=== PATIENT | male | born 1955 | race Caucasian/White ===

== ENCOUNTER 2023-05-20 06:06 | Inpatient (IN) | payer OTHER, SELFPAY ==
[2023-05-19 23:39] VITALS: BP 169/86
[2023-05-19 23:44] VITALS: BP 169/86
[2023-05-20] VITALS (27 sets, daily range): BP systolic 84–143; BP diastolic 45–68; BMI 47.2; BMI 46.5
[2023-05-20 00:06] LABS: % Basophils 0.3 % (0-2); % Eosinophils 0.1 % (0-6); % Immature Granulocytes 0.8 % (0-0.5); % Lymphocytes 2.8 % (20.5-51.1); % Monocytes 3.1 % (1.7-9.3); % Neutrophils 92.9 % (42.2-75.2); Absolute Basophils 0.1 10^3/uL (0-0.2); Absolute Immature Granulocytes 0.2 10^3/uL (0-0.05); Absolute Lymphocytes 0.5 10^3/uL (1.2-3.4); Absolute Monocytes 0.6 10^3/uL (0.1-0.6); Absolute Neutrophils 16.9 10^3/uL (1.4-6.5); Hematocrit 33.5 % (39.0-52.0); Hemoglobin 11.3 g/dL (13.0-18.0); Mean Corp Hgb Conc. 33.7 g/dL (33.0-37.0); Mean Corpuscular Hgb 28.3 pg (27.0-31.0); Mean Platelet Volume 9.9 fL (7.4-10.4); Nucleated Red Blood Cells % 0 % (-); Platelet Count 190 10^3/uL (130-400); Red Blood Cell Count 3.99 10^6/uL (4.70-6.10); Red Cell Dist. Width 16.9 % (11.5-14.5); White Blood Cell Count 18.2 10^3/uL (4.8-10.8)
[2023-05-20 00:19] LABS: Lactic Acid 1.5 mmol/L (0.7-2.0)
[2023-05-20 00:21] LABS: ALT (SGPT) 25 U/L (0-50); AST (SGOT) 39 U/L (17-59); Albumin 3.1 g/dl (3.5-5.0); Alkaline Phosphatase 136 U/L (38-126); Blood Urea Nitrogen 39 mg/dl (9-20); Calcium 8.4 mg/dl (8.4-10.2); Carbon Dioxide 15 mmol/L (22-30); Chloride 104 mmol/L (98-107); Estimated Creatinine Clearance 44 ml/min; Glucose 197 mg/dl (70-99); Sodium 132 mmol/L (135-145); Total Bilirubin 1.7 mg/dl (0.2-1.3); Total Protein 6.4 g/dl (6.3-8.2); eGFR 28.49
[2023-05-20] MEDS: TYLENOL 1000 MG PO ×2 (01:50→20:35)
[2023-05-20 01:53] LABS: Urine Albumin 1+ (Neg - Trace); Urine Bilirubin Negative (Negative); Urine Character Slightly Cloudy (Clear); Urine Color Yellow; Urine Glucose Negative (Negative); Urine Ketone 1+ (Negative); Urine Leukocyte 2+ (Negative); Urine Nitrite Negative (Negative); Urine Occult Blood 2+ (Negative); Urine Urobilinogen Negative (Neg - 1+)
[2023-05-20 02:05] LABS: Urine Granular Cast 0-2 /LPF (0); Urine Squamous Cell 0-2 /LPF (Few)
[2023-05-20 02:06] LABS: Urine Amorphous Seen; Urine Bacteria Moderate (Negative); Urine White Cell 16-20 /HPF (0-5)
[2023-05-20] MEDS: ZOSYN 50 IV (02:58)
[2023-05-20] MEDS: NSS 500 IV (03:08)
--- NOTE | 2023-05-20 03:16 | ED.GENMED ---
History of Present Illness
General
Chief Complaint: Weakness
Source: patient and spouse
Exam Limitations: none
Time Seen by Provider: 05/20/23 02:41
Nursing documentation reviewed up to this point in time: agreed with
Travel History
Have you had any contact with someone who has COVID-19?: No
Do you have any symptoms of coronavirus? Fever > 100 degrees, chills, cough, shortness of breath, sore throat, loss of taste or smell, muscle aches, or headache?: Yes
Symptoms:: fever
History of Present Illness
History of Present Illness:
67-year-old male with a past medical history of bronchiectasis, hypertension, hyperlipidemia, diabetes, rheumatoid arthritis who presents to the emergency department for evaluation of fever and weakness over the past few days. reports for the
past 3 to 4 days he has been increasingly weak and she has noticed he is slightly confused (although patient vehemently denies this). He has had a fever today which finally prompted presentation to the emergency room. He has noticed some increased
frequency of urination and some mild dysuria over the past 3 days. He says that he did have some left-sided flank pain a couple days ago but this subsided and he no longer has any flank pain today. Denies any abdominal pain. He has not had any
nausea or vomiting and denies diarrhea�in fact he has been mildly constipated. He denies any cough or shortness of breath. Denies any chest pain. He denies any other complaints. Of note he is on Orencia (DMARD).
Past History
Past History
ED Past Medical History: CAD, CVA, Hypercholesterolemia, Other and Other
ED Past Surgical History: Orthopedic
Social History
Tobacco: Non-smoker
Alcohol: None
Personal:
Living: with family
Family History
Family History: Other
Review of Systems
Review of Systems
All Other Systems: ROS reviewed and negative except as documented in HPI and ROS
Constitutional: Reports fever, fatigue and chills
EENT: Denies sore throat
Respiratory: Denies cough or trouble breathing
Cardiac: Denies chest pain or palpitations
ABD/GI: Reports constipated; Denies abdominal pain, nausea, vomiting or diarrhea
: Reports dysuria, frequency and flank pain
Musculoskeletal: Denies neck pain or back pain
Neurological: Reports other (Questionable mild confusion); Denies headache, weakness or numbness
Phy Exam
Physical Exam
Physical Exam:
General: Awake, alert, oriented x3; somewhat flushed but no acute distress
Head: Normocephalic, atraumatic
Eyes: Conjunctiva normal, sclera anicteric
Throat: Airway intact, handling secretions
Neck: Trachea midline, supple without meningismus
Lungs: Some faint rales at the lung bases; acceptable pulse ox on room air; mild tachypnea but not in respiratory distress
Heart: Tachycardia with regular rhythm, no murmurs, gallops, or rubs
Abd: Soft, non distended, nontender to deep palpation
Back: No CVA tenderness
Neuro: No gross deficits
Skin: no rash
Extremities: Warm and well-perfused
Scores
Heart Failure Risk
Heart Failure Risk Score: Not Applicable
Heart Score for Chest Pain Patients
STEMI patient?: Not applicable
Withdrawal Assessment of Alcohol
Withdrawal Assessment Completed?: Not applicable
Course
Orders/Labs/Results
Orders:
Orders
05/19/23 23:47
Electrocardiogram (*1) Urgent
Reason for Study: Other
Other Reason for Exam: Possible Sepsis
Cardiac Monitoring- Treatment ONCE
EKG- Treatment ONCE
IV Insert/Care/Rem.- Treatment PRN
Straight cath- Treatment ONCE
Urinalysis Reflex To Culture Urgent
Date Specimen was Collected: 05/19/23
Time Specimen was Collected: 23:47
O2 Therapy [RESP] Urgent
Titrate/Wean O2 to maintain O2 sat greater than (%): 93
Special Instructions: TO MAINTAIN CONTINUOUS O2 SATS > OR = 93%
Pulse Ox/cont/shift [RESP] Urgent
Quantity: 1
Special Instructions: CONTINUOUS
05/19/23 23:57
Complete Blood Count/With Diff Urgent
Comprehensive Metabolic Panel Urgent
Lactic Acid Q4H
Comment: ON ICE, CANCEL 2ND ORDER IF FIRST LACTIC ACID LEVEL <2
Blood Culture Q30M
CINDY Source: Blood/Venous
Specimen Description:
Date Specimen was Collected: 05/19/23
Time Specimen was Collected: 23:47
Comment: FROM 2 SEPARATE SITES
05/20/23 01:47
Urine Microscopic Reflex Cult Urgent
Blood Culture Q30M
CINDY Source: Blood/Venous
Specimen Description:
Comment: FROM 2 SEPARATE SITES
Urine Culture Urgent
CINDY Source: U
Specimen Description:
Date Specimen was Collected: 05/19/23
Time Specimen was Collected: 23:47
05/20/23 01:48
Acetaminophen [Tylenol] 1,000 mg .ROUTE .STK-MED ONE
05/20/23 01:49
Acetaminophen [Tylenol] 1,000 mg PO NOW STA
05/20/23 02:44
0.9% Sodium Chloride 500 ml [Nss] 500 ml IV BOLUS
Piperacillin/Tazo 3.375 Gram [Zosyn] 3.375 gram in 50 ml IV NOW
CR Chest Portable - 1 View Urgent
Comment:
Reason For Exam: fever
Reason Study Needs to be Portable: Unable to Transport
05/20/23 03:02
CT Abd/pel Without Iv Or Oral Urgent
Comment:
Reason For Exam: left flank pain
Abnormal Lab Results
05/19/23 05/20/23
23:57 01:47
WBC 18.2 H 10^3/uL
(4.8-10.8)
RBC 3.99 L 10^6/uL
(4.70-6.10)
Hgb 11.3 L g/dL
(13.0-18.0)
Hct 33.5 L %
(39.0-52.0)
RDW 16.9 H %
(11.5-14.5)
Abs Immat Gran (auto) 0.2 H 10^3/uL
(0-0.05)
Absolute Neuts (auto) 16.9 H 10^3/uL
(1.4-6.5)
Absolute Lymphs (auto) 0.5 L 10^3/uL
(1.2-3.4)
Immature Gran % 0.8 H %
(0-0.5)
Neutrophils % 92.9 H %
(42.2-75.2)
Lymphocytes % 2.8 L %
(20.5-51.1)
Sodium 132 L mmol/L
(135-145)
Carbon Dioxide 15 L mmol/L
(22-30)
BUN 39 H mg/dl
(9-20)
Creatinine 2.4 H mg/dL
(0.7-1.3)
Glucose 197 H mg/dl
(70-99)
Total Bilirubin 1.7 H mg/dl
(0.2-1.3)
Alkaline Phosphatase 136 H U/L
(38-126)
Albumin 3.1 L g/dl
(3.5-5.0)
Urine Ketones 1+ A
(Negative)
Ur Occult Blood Reflex 2+ A
(Negative)
Leukocyte Esterase Rfl 2+ A
(Negative)
Urine RBC 7-10 A /HPF
(0-2)
Urine WBC (Reflex) 16-20 A /HPF
(0-5)
Urine Bacteria (Reflex) Moderate A
(Negative)
Urine Albumin (Reflex) 1+ A
(Neg - Trace)
05/19/23 23:57
05/19/23 23:57
Vital Signs
Initial and Last Documented VS:
Initial Vital Signs
BP
169/86
05/19/23 23:39
Last Documented Vital Signs
Temp Pulse Resp BP Pulse Ox
38.2 C H 83 24 106/45 92
05/20/23 02:22 05/20/23 04:30 05/20/23 04:30 05/20/23 04:00 05/20/23 03:15
MDM/Problems Addressed
Differential Diagnosis Includes:
UTI/pyelonephritis, pneumonia, viral syndrome, intra-abdominal infection somewhat less likely with no tenderness
MDM/Problems Addressed:
67-year-old male presents for evaluation of fever and lethargy over the past few days associated with urinary symptoms. He did have some flank pain a few days ago this resolved. No abdominal pain. He arrives tachycardic, tachypneic, febrile,
hypertensive; pulse ox acceptable on room air. Exam as above. Plan to place an IV send labs including a CBC and a CMP, lactate, blood cultures, urinalysis. Swab for COVID and flu. Check a chest x-ray to rule out pneumonia. Given his report of
flank pain a few days ago and concern for sepsis will send for CT of the abdomen pelvis as well to rule out kidney stone. Check an EKG given his tachycardia. Will treat with fluids, antipyretics. Monitor closely reassess after the above.
Labs reviewed: CBC shows leukocytosis 18.2, marginal anemia. CMP shows a creatinine of 2.4 up from baseline of 1.4 last year. His lactate is less than 2. Urinalysis positive for infection with moderate bacteria and pyuria. Chest x-ray reviewed
by me shows no acute change from prior. Awaiting results of CT to rule out kidney stone but suspect likely sepsis secondary to UTI. Will cover with IV Zosyn. IV fluids in progress. Anticipate admission pending CT.
CT reviewed: Two 5 mm obstructive stone to the left UVJ with moderate hydronephrosis. Concern for sepsis from urinary tract infection with nephrolithiasis--Case discussed with nephrology for consultation and suspect will need ureteral stent.
Already covered with antibiotics, given IV fluids. Case discussed with hospitalist for admission.
Chronic conditions affecting care:
History of rheumatoid arthritis on DMARDs�immunosuppression high risk for sepsis/infection
Acute Exacerbation and/or Progression of Chronic Illness:
Acutely hypertensive�improved without intervention continue to monitor no additional antihypertensive indicated at present
Acute Exacerbation and/or Progression of Chronic Illness: HTN
*Radiology
Radiology exam reviewed: preliminary read by ED provider and radiology read reviewed
*Pulse Oximetry
Patient hypoxic: no
*EKG
Interpreted by ED Provider?: Yes
Heart Rate: 106
Rate: tachycardiac
Rhythm: sinus and sinus tachycardia
Squire: normal axis
Interval: normal interval
QRS Pattern: right bundle branch block
Ischemia: non-specific ST changes
*Critical Care Note
Total Time (30-74mins, 75-104mins- exclusive of procedures): 30
comment:
Critical care statement: A total of 30 minutes of critical care time was provided for this patient. This includes management of unstable vital signs, evaluation of the patient at bedside, frequent reassessment, discussion with
consultants/hospitalist, and review of pertinent medical records. This time was separate from time utilized to perform any aforementioned documented procedures
Data Reviewed
Review of Other/Old Records Reveals: Labs and Records
Source: patient, records and spouse
Patient Management
Discussion with other providers: Hospitalist (Discussed with hospitalist)
Escalation/DeEscalation of care consider admission/obs:
Admission indicated
ED Attending Note
-
Portions of this chart may have been created with voice recognition software.� Occasional wrong word or��sound alike� substitutions may have occurred due to the inherent limitations of voice recognition software.
Discharge Plan
Departure
Patient Disposition: Admit
Date of Disposition: 05/20/23
Time of Disposition: 05:06
Admit to doctor: Eliazar
Presentation/result/management discussed w/ accepting MD/: Hospitalist
Discharge Problem:
Sepsis, AJ (acute kidney injury), Acute UTI, Left nephrolithiasis
Prescriptions:
No Action
paroxetine HCl 20 MG tablet
20 mg PO BID
multivitamin [Multi-Day] 1 EACH tablet
1 ea PO DAILY
propranolol 10 MG tablet
20 mg PO BID
losartan 50 MG tablet
50 mg PO BID
Hold Instructions: resume in 2 days
furosemide [Lasix] 20 MG tablet
40 mg PO DAILY
Hold Instructions: resume in 2 days
tramadol 50 MG tablet
50 mg PO PRN PRN (Reason: pain)
atorvastatin 80 mg Tablet
80 mg PO DAILY
ascorbic acid (vitamin C) [Vitamin C] 1,000 mg Tablet
1,000 mg PO DAILY
clopidogrel [Plavix] 75 mg Tablet
75 mg PO DAILY
nifedipine 60 mg Tablet Extended Release
60 mg PO DAILY
cholecalciferol (vitamin D3) [Vitamin D3] 125 mcg (5,000 unit) Tablet
125 mcg PO DAILY
Orencia 125 mg/mL Syringe
125 mg SC QWEEK
ciprofloxacin HCl 0.3 % Drops
1 drp ophthalmic (eye) Q4H Qty: 10 0RF
Rx Instructions:
take for 3 more days
Mounjaro 7.5 mg/0.5 mL Pen Injector
7.5 mg SC QWEEK
insulin aspart U-100 [Novolog FlexPen U-100 Insulin] 100 unit/mL (3 mL) insulin pen
35 unit SC TID
Rx Instructions:
new dose
insulin degludec [Tresiba FlexTouch U-100]
140 unit SC DAILY
Rx Instructions:
new dose
Referrals:
Menichello,Anabel, DO [Family Provider] -
Interventions
Interventions:
*Risk Screen - Suicide Last Done: 05/20/23 00:02
*General Assessment Last Done: 05/20/23 00:02
*Neglect/Abuse Screening Last Done: 05/20/23 00:02
ED- Fall Risk Assessment Last Done: 05/20/23 03:23
*ED COVID-19 Vaccine History Last Done: 05/20/23 00:02
ED- Cardiac Assessment Last Done: 05/20/23 00:02
ED- Neurological Assessment Last Done: 05/20/23 00:02
ED- Pulmonary Assessment Last Done: 05/20/23 00:02
Discharge Date and Time
Print Language: MALAY
[2023-05-20] MEDS: NSS 1000 IV (05:21)
--- NOTE | 2023-05-20 05:34 | HPS.HSE ---
Addendum entered and electronically signed by Reji Perea MD 05/20/23 05:48:
ID consult placed
Original Note:
Family Physician
-
Family Physician: Anabel Bonilla
Chief Complaint
-
weak and confused per
History of Present Illness
67M with PMH significant for ASCVD, HTN, DM-II and morbid obesity, bronchiectasis, hypertension, hyperlipidemia, diabetes, rheumatoid arthritis seen at ER for evalautio of fever and weakness over the past few 3 to 4 days
Per he is progressive wqeakness , mildly confused
Reports increased frequency of urination and some mild dysuria over the past 3 days.
+ left-sided flank pain a couple days ago but this subside
ROS
Denies any abdominal pain.
No nausea or vomiting and denies diarrhea�i
Medical History
Past Medical History
Past Medical History: Reports Other
Additional Past Medical History:
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
Polyclonal Gammopathy
Morbid Obesity
DM-II
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
Nephrolithiasis
Prostatitis
NEIL
Interstitial Lung Disease
Cirrhosis / GARG
Rheumatoid Arthritis
History of PE
Past Surgical History: Reports Other
Additional Past Surgical History:
Right Rotator Cuff repair
Bilateral TKA
PTCA with Stent x 2
Cataracts
Social History
Tobacco: Non-smoker
Alcohol: Occasional
Personal:
Living: With Family
Family History
Family History: Other (Father: COPD Mother: Cerebral Aneurysm Sister: CHF)
Allergies / Home Medications
Allergies reflects when Allergies were last updated in [facility].
Home Medications with original date entered in [facility]
Allergy/Medication List:
Allergies
Allergy/AdvReac Type Severity Reaction Status Date / Time
No Known Allergies Allergy Verified 06/11/22 02:15
Home Medications
paroxetine HCl 20 mg tablet 20 mg PO BID anxiety 02/03/12
multivitamin (Multi-Day tablet) 1 ea PO DAILY 03/05/16
propranolol 10 mg tablet 20 mg PO BID 03/05/16
furosemide 20 mg tablet (Lasix) 40 mg PO DAILY 01/04/18
losartan 50 mg tablet 50 mg PO BID 01/04/18
tramadol 50 mg tablet 50 mg PO PRN PRN pain 01/04/18
abatacept 125 mg/mL subcutaneous syringe (Orencia) 125 mg SC QWEEK 06/11/22
ascorbic acid (vitamin C) 1,000 mg tablet (Vitamin C) 1,000 mg PO DAILY 06/11/22
atorvastatin 80 mg tablet 80 mg PO DAILY 06/11/22
cholecalciferol (vitamin D3) 125 mcg (5,000 unit) tablet (Vitamin D3) 125 mcg PO DAILY 06/11/22
clopidogrel 75 mg tablet (Plavix) 75 mg PO DAILY 06/11/22
nifedipine 60 mg tablet,extended release 60 mg PO DAILY 06/11/22
ciprofloxacin HCl 0.3 % eye drops 1 drp ophthalmic (eye) Q4H #10 mL 06/13/22
insulin aspart U-100 100 unit/mL (3 mL) subcutaneous pen (Novolog FlexPen U-100 Insulin aspart) 35 unit SC TID 05/20/23
insulin degludec [Tresiba FlexTouch U-100] 140 unit SC DAILY 05/20/23
tirzepatide 7.5 mg/0.5 mL subcutaneous pen injector (Mounjaro) 7.5 mg SC QWEEK 05/20/23
Review of Systems
-
Constitutional: Reports Fever
EENT: Reports No Symptoms
Respiratory: Reports No Symptoms
Cardiac: Reports No Symptoms
Abdomen/GI: Reports No Symptoms
: Reports See HPI
Musculoskeletal: Reports No Symptoms
Skin: Reports No Symptoms
Neurological: Reports No Symptoms
Endocrine: Reports No Symptoms
Hematologic/Lymphatic: Reports No Symptoms
Psych: Reports No Symptoms
Physical Exam
Vital Signs
Vital Signs
Temp Pulse Resp BP Pulse Ox
100.8 F H 83 24 106/45 92
05/20/23 02:22 05/20/23 04:30 05/20/23 04:30 05/20/23 04:00 05/20/23 03:15
Physical Exam
General: No Apparent Distress and Other
HEENT: NormoCephalic and Anicteric
Respiratory: Crackles
Cardiac: Regular Rhythm and Tachycardia
Breast: Deferred by me
GI: Soft, Non Tender, Non Distended and Normal Bowel Sounds
Genito-urinary: No costovertebral tender
Skin: Warm
Neuro: Awake, Alert and Nonfocal/grossly intact
Psych: Calm
Laboratory Results
-
05/19/23 23:57
05/19/23 23:57
Laboratory Results
Lactic Acid Cancelled 05/20/23 03:47
Total Bilirubin 1.7 mg/dl (0.2-1.3) H 05/19/23 23:57
AST 39 U/L (17-59) 05/19/23 23:57
ALT 25 U/L (0-50) 05/19/23 23:57
Alkaline Phosphatase 136 U/L (38-126) H 05/19/23 23:57
Data Reviewed
-
CT Scan: Report Reviewed by me
Lab Data: Labs Reviewed by me
Old Records: Reviewed
Impression/Plan
-
Reviewed VS: T 101.3 HR 84 BP 105/45 RR 24
Data
WCC 18
Hgb 11.3
Plt 190
Na 132
CO2 15
BUN 39
Cr 2.4 - base line mid 1s
eGFR 28
TB 1.7
UA suggestive of UTI
CT AP:
two 5mm stones at left UVJ with moderate hydro.
No BW obstruction
Last hospitalist admission: 06/14/22 - 06/13/22
DX: S sixto sepsis which was present on admission with acute toxic metabolic encephalopathy due to right pyelonephritis, acute kidney injury, acute hypoxemic respiratory insufficiency with a history of interstitial lung disease, acute conjunctivitis
ASSESSMENT & PLAN
Sepsis due to complicated UTI 2/2 infected two 5mm stones at left UVJ with moderate hydro/ PN
Associated TME
Associated AJ on CKD
Metabolic acidosis
- UCx, BCx
- NPO and LR IVF
- IV HCO3
- Empiric Cefepime
- Held Plavix
- Uro consulted
AJ due to obstructive nephropathy and sepsis
Metabolic acidosis
- IV HCO3
- LR IVF
- Hold diuretics acutely.
- Hold ARB for now.
- Follow RFTs
HX ILD - New dx of ILD based on CT scan done 06/08.
HX PE, is morbidly obese and has been in bed / sedentary for the past 3 days due to acute illness.
ASCVD (CAD, CVA)
- Stable. No chest pain or new focal neurologic complaints.
- held DAPT, statin, etc.
DMT2
- Stable.
- Continue basal lantus 50 %
- add ISS low
Primary Hypertension
- Holding ARB acutely as noted above.
- held nifedipine and propranolol.
Rheumatoid Arthritis
- Stable. No complaints of active joint pains at present.
- Hold Orencia given active infection.
NEIL
- Stable. Continue CPAP during inpatient stay.
Morbid Obesity
DVT Prophylaxis: SCD
Code Status: Full
ICU
Total Critical Care Time__45___ minutes. I was immediately available to the patient and staff. I personally examined, reviewed labs, diagnostic images/reports, interpretations, treatment plans, discussed patient care with other providers and
family or caregivers (if patient is unable to make decisions), entered orders as appropriate and documented the medical record.
--- NOTE | 2023-05-20 05:58 | W.SUR.PREOP ---
Pre-Operative Surgical Note
-
I have examined this patient prior to the performance of the scheduled procedure.
The patient's condition is unchanged from the time of the current History and
Physical and the patient is able to undergo the scheduled procedure.
67M presents to ER w/ progressive weakness, mild confusion, urinary frequency, dysuria over last 3 days.
Febrile to >102F in ER.
+ left flank pain a couple days ago - has subsided.
WBC 18.2
Cr 2.4
UA +bacteria/WBCs
CT imaging - large obstructing proximal right ureteral stone, obstructing distal left UVJ stones x2 (5 mm)
A/P:
Urosepsis
AJ
Obstructing distal left ureteral stones
Obstructing proximal right ureteral stone
- IVF + IV abx
- NPO
- To OR emergently for cysto + bilateral stent placement
D/w Dr. Vega.
--- NOTE | 2023-05-20 06:15 | W.IMMPOSTOP ---
Surgical Immed Post Op Note
-
Primary Surgeon: Tarun
Pre-op Diagnosis:
Urosepsis
AJ
Proximal right ureteral stone
Obstructing distal left ureteral stones (x2) w/ hydronephrosis
Post-op Diagnosis: Same
Procedure Performed:
1. Cystoscopy and left UO stone manipulation
2. Bilateral ureteral stent placement (6Fr x 26 cm JJ)
Anesthesia Type: GETA
Specimen / Cultures: None/None
Estimated Blood Loss: Negligible
Drains:
1. Bilateral 6Fr x 26 cm JJ ureteral stents
2. 16Fr Coude catheter (10 cc in balloon)
Complications: None
Operative Findings:
narrow urethral lumen w/o stricture
debris-filled bladder c/w cystitis
frankly purulent urine output from left UO after left stent deployment
5 mm stone at left UO manipulated retrograde to accommodate guidewire.
[2023-05-20 07:07] LABS: Glucose - Point of Care 131 mg/dl (70-99)
[2023-05-20] MEDS: LR 1000 IV ×2 (07:38→16:27)
[2023-05-20] MEDS: STERILE WATER FOR INJECTION 10 ML IV ×2 (07:56→20:33)
[2023-05-20] MEDS: MAXIPIME 1000 MG IV ×2 (07:57→20:33)
--- NOTE | 2023-05-20 08:03 | W.PN.UPDATE ---
Update Note
Progress Note Update
67-year-old male admitted early this morning for sepsis secondary to infected left ureteral stone.
Status post cystoscopy with purulent urine, 2 left ureteral stents placed by urology on 05/20/2023.
Patient is afebrile, blood pressure 109/58, pulse 72.
Continue IV fluids, continue IV antibiotics, stable for transfer to telemetry.
Discussed with nursing staff and neurology.
[2023-05-20] MEDS: SODIUM BICARBONATE 1150 MEQ IV (08:04)
--- NOTE | 2023-05-20 08:51 | CON.INTV ---
Consultation
Consultation Request
Date/Time Consultation Requested: 05/20/2023549
Date/Time Consultation Performed: 05/20/2023834
Requesting Provider: Dr. Perea
Performing Provider: Dr. Hutchins
Reason for Consultation: Sepsis
Medical History
-
Chief Complaint: Weakness/AMS
History of Present Illness:
67-year-old male with past medical history of DM type II, polyclonal colopathy, NEIL, history of ILD, GARG cirrhosis and history of PE who was BIBEMS due to fever with generalized weakness, confusion and frequent urination. In the ER, he was febrile
to 101.6 �F, tachycardic to 106 bpm, tachypneic to 29 breaths/min, hypertensive to 169/86 and saturating 94% on room air. Labs showed leukocytosis to 18.2, Hb 11.3, hyponatremia 132, elevated creatinine to 2.4 and elevated T. bili. Blood cultures
were collected and urine culture was also sent. CT A/P was obtained showing left-sided obstructive uropathy with two 5 mm calculi at the left ureterovesical junction. Also numerous additional nonobstructing left intrarenal calculi, and a
nonobstructing 9 mm right renal pelvic calculus. Urology consulted and patient went to the OR for cystoscopy with bilateral stent placement. Due to his tachycardia and risk for transient bacteremia with worsening sepsis, he was transferred to the
ICU postoperatively for further care. Siene Maker service is consulted for additional management/recommendations.
When I saw the patient this morning he was in bed, in no acute distress with BP 114/55. Respiratory rate 17 and he was saturating 96% on room air. Heart rate 69. He says he feels much better currently. Denies headache, chest pain, shortness of
breath, fevers or chills.
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
PSHx: Right rotator cuff repair, bilateral TKA, coronary stents X2, cataract surgery
Past Medical History
Past Medical History: Other (Above as per HPI)
Past Surgical History: Other (Above as per HPI)
Social History
Tobacco: Non-smoker
Alcohol: Occasional
Drug: None
Personal:
Living: With Family
Family History
Family History: Other (Father: COPD; mother: Cerebral aneurysm; sister: CHF)
Allergies / Home Medications
Allergies
Allergy/AdvReac Type Severity Reaction Status Date / Time
No Known Allergies Allergy Verified 06/11/22 02:15
Home Medications
�Medication �Instructions �Recorded �Confirmed �Last Taken �Type
paroxetine HCl 20 mg tablet 20 mg PO BID anxiety 02/03/12 05/20/23 08/08/16 History
multivitamin (Multi-Day tablet) 1 ea PO DAILY 03/05/16 05/20/23 08/09/16 History
propranolol 10 mg tablet 20 mg PO BID 03/05/16 05/20/23 08/09/16 History
furosemide 20 mg tablet (Lasix) 40 mg PO DAILY 01/04/18 05/20/23 Unknown History
losartan 50 mg tablet 50 mg PO BID 01/04/18 05/20/23 Unknown History
tramadol 50 mg tablet 50 mg PO PRN PRN pain 01/04/18 05/20/23 Unknown History
abatacept 125 mg/mL subcutaneous 125 mg SC QWEEK 06/11/22 05/20/23 Unknown History
syringe (Orencia)
ascorbic acid (vitamin C) 1,000 mg 1,000 mg PO DAILY 06/11/22 05/20/23 Unknown History
tablet (Vitamin C)
atorvastatin 80 mg tablet 80 mg PO DAILY 06/11/22 05/20/23 Unknown History
cholecalciferol (vitamin D3) 125 125 mcg PO DAILY 06/11/22 05/20/23 Unknown History
mcg (5,000 unit) tablet (Vitamin
D3)
clopidogrel 75 mg tablet (Plavix) 75 mg PO DAILY 06/11/22 05/20/23 Unknown History
nifedipine 60 mg tablet,extended 60 mg PO DAILY 06/11/22 05/20/23 Unknown History
release
ciprofloxacin HCl 0.3 % eye drops 1 drp ophthalmic (eye) Q4H #10 mL 06/13/22 Unknown Rx
insulin aspart U-100 100 unit/mL 35 unit SC TID 05/20/23 05/20/23 Unknown History
(3 mL) subcutaneous pen (Novolog
FlexPen U-100 Insulin aspart)
insulin degludec [Tresiba 140 unit SC DAILY 05/20/23 05/20/23 Unknown History
FlexTouch U-100]
tirzepatide 7.5 mg/0.5 mL 7.5 mg SC QWEEK 05/20/23 05/20/23 Unknown History
subcutaneous pen injector
(Phillip)
Review of Systems
-
History Source: Patient
All other systems: Negative unless noted
Vitals / Labs / Diagnostic Testing
Vital Signs
Temp Pulse Resp BP Pulse Ox
97.6 F 69 17 126/64 95
05/20/23 08:34 05/20/23 09:00 05/20/23 09:00 05/20/23 08:45 05/20/23 09:00
Lab Data
05/19/23 23:57
05/19/23 23:57
Laboratory Results
05/20/23
08:09
PT Cancelled
INR Cancelled
APTT Cancelled
Diagnostic Testing:
Physical Exam
-
HEENT: Normocephalic and Anicteric
Cardiovascular: S1/S2 and Peripheral Edema (n)
Respiratory: Clear, Wheeze (n), Rales (n), Rhonchi (n) and Non-Labored Respirations
GI: Soft, Non Distended and Non Tender
Neurology: Awake, Alert and Tremors (n)
Skin: Warm and Dry
General: Comfortable and Chills (n)
Assessment
-
Assessment: 67-year-old male with past medical history of DM type II, polyclonal colopathy, NEIL, history of ILD, GARG cirrhosis and history of PE who was BIBEMS due to fever with generalized weakness, confusion and frequent urination. In the ER,
he was febrile to 101.6 �F, tachycardic to 106 bpm, tachypneic to 29 breaths/min, hypertensive to 169/86 and saturating 94% on room air. Labs showed leukocytosis to 18.2, Hb 11.3, hyponatremia 132, elevated creatinine to 2.4 and elevated T. bili.
Blood cultures were collected and urine culture was also sent. CT A/P was obtained showing left-sided obstructive uropathy with two 5 mm calculi at the left ureterovesical junction. Also numerous additional nonobstructing left intrarenal calculi,
and a nonobstructing 9 mm right renal pelvic calculus. Urology consulted and patient went to the OR for cystoscopy with bilateral stent placement. Due to his tachycardia and risk for transient bacteremia with worsening sepsis, he was transferred
to the ICU postoperatively for further care. Siene Maker service is consulted for additional management/recommendations.
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
Impression:
#Renal stone related sepsis without shock
#Complicated UTI with left-sided obstructive uropathy
#Febrile illness - due to sepsis
#Tachycardia - due to sepsis and tachycardia now resolved
#Acute kidney injury (baseline creatinine appears to be between 1.4�1.7)
#Hyperglycemia - improved
#Hyperbilirubinemia - likely due to sepsis
Plan:
- Continue with ABx (cefepime); ID on board
- Trend Cr and UOP; renally dose all meds and ABx
- Follow up urine and blood Cx
- Trend LFTs
- Would stop IVF after first 24 hrs as pt tolerating PO diet
- Maintain MAP>65
- Goal BG 140-180mg/dL
- Replete electrolytes with K>4, Mg>2
- stress ulcer ppx: n/a
- DVT ppx: LMWH --> if Cr continues to worsen then change to HSQ
Dispo: Patient stable for transfer out of ICU to telemetry. Siene Maker/pulmonary service will sign off. Thank you for allowing us to be involved in the care of this patient. Please reconsult if there are any additional questions/concerns.
Total time spent today was 55 minutes for this encounter. Time includes reviewing laboratory test/imaging results, reviewing pertinent medical records, obtaining and reviewing medical history, performing an appropriate exam, ordering medications,
tests and procedures. Time also includes documentation of this encounter, coordinating patient care and communicating with other healthcare professionals. Total time does not include separately billed tests performed on this date of service.
Data:
CT Abd/Pelvis without contrast 05-20-2023:
Left-sided obstructive uropathy secondary to two 5 mm calculi at the left ureterovesical junction. Cannot exclude superimposed infection/pyelonephritis. Numerous additional nonobstructing left intrarenal calculi.
Nonobstructing 9 mm right renal pelvis calculus.
Cholelithiasis without CT evidence of acute cholecystitis.
Cirrhosis. Stable mild splenomegaly.
Few small proximal left para-aortic lymph nodes which are slightly prominent, though not grossly enlarged. There is associated adjacent soft tissue stranding, likely inflammatory/reactive.
Mild to moderate fecal burden and mild distention in the rectum. Few diverticula. No evidence of acute diverticulitis.
--- NOTE | 2023-05-20 09:15 | CON.ID ---
Consultation
-
Date/Time Consultation Requested: 05/20/2023 07:04
Date/Time Consultation Performed: 05/20/2023 09:12
Requesting Provider: Dr. Perea
Performing Provider: Dr. Mays
Reason for Consultation: Obstructive uropathy
Chief Complaint / Past History
History of Present Illness
Juan Pa is a 67-year-old man being evaluated at the request of Dr. Perea regarding complicated urinary tract infection and obstructive uropathy. History is obtained from chart review, along with patient interview. According to reviewed notes
the patient has been developing increasing generalized weakness over the prior 3 to 4 days, and the reported some increased confusion. Today he developed fever, and this prompted evaluation in the ER. Workup revealed a leukocytosis and
elevated creatinine. Urine was found to have pyuria, and CT imaging revealed moderate left hydronephrosis with obstructive uropathy. The patient was taken to the OR for stent placement, and is now in the intensive care unit. Infectious Diseases
is asked to manage further antibiotic therapy.
Patient reports that he had been feeling ill for at least 4 to 5 days, with generalized weakness, along with urinary incontinence. He denied any dysuria, hematuria, or stone passage. He admits to fevers at home, although he cannot recall the exact
temperature. He denies any nausea or vomiting. He denies any prior back pain.
Past History
Additional Past Medical History:
CAD
Hx CVA
Dyslipidemia
Bronchiectasis
HTN
DM
RA
Allergy History:
No Known Allergies Allergy (Verified 06/11/22 02:15)
Medications Reviewed: Yes
Current Antibiotics:
Zosyn given in ER. Cefepime dosed earlier today.
Social History
Tobacco: Non-Smoker
Alcohol: None
Drug: None
Personal:
Living: With Family
Employment: Employed
Family History
Family History: Not Pertinent
Review of Systems
Vital Signs
Temp Pulse Resp BP Pulse Ox
97.6 F 69 17 126/64 95
05/20/23 08:34 05/20/23 09:00 05/20/23 09:00 05/20/23 08:45 05/20/23 09:00
Physical Exam
Physical Exam
Constitutional: No Acute Distress, Comfortable, Non-toxic and Obese
Eyes: Pupils Equal, Pupils Round, No Conjunctival Hemorrhage and Sclera Anicteric
Oral: No Thrush and No Ulcers
Cardiovascular: Regular Rate and S1/S2; Negative S3/S4
Pulmonary: Clear; Negative Wheezes, Rales or Rhonchi
Gastrointestinal: Soft, Non Tender, Non Distended, Normal Bowel Sounds, No Rebound and No Guarding
Genito-Urinary: Arias and Turbid Urine; Negative Hematuria
Extremities: Edema; Negative Cyanosis or Erythema
Skin: Warm and Dry; Negative Rash or Jaundice
Neurological: Awake and Alert
Psychological: Calm
Lab / Diagnostic Study Results
05/19/23 23:57
05/19/23 23:57
Abs Immat Gran (auto) 0.2 10^3/uL (0-0.05) H 05/19/23 23:57
Absolute Neuts (auto) 16.9 10^3/uL (1.4-6.5) H 05/19/23 23:57
Absolute Lymphs (auto) 0.5 10^3/uL (1.2-3.4) L 05/19/23 23:57
Absolute Monos (auto) 0.6 10^3/uL (0.1-0.6) 05/19/23 23:57
Absolute Basos (auto) 0.1 10^3/uL (0-0.2) 05/19/23 23:57
Immature Gran % 0.8 % (0-0.5) H 05/19/23 23:57
Neutrophils % 92.9 % (42.2-75.2) H 05/19/23 23:57
Lymphocytes % 2.8 % (20.5-51.1) L 05/19/23 23:57
Monocytes % 3.1 % (1.7-9.3) 05/19/23 23:57
Eosinophils % 0.1 % (0-6) 05/19/23 23:57
Basophils % 0.3 % (0-2) 05/19/23 23:57
PT Cancelled 05/20/23 08:09
INR Cancelled 05/20/23 08:09
Lactic Acid 1.0 mmol/L (0.7-2.0) 05/20/23 08:09
Ur Squamous Epith Cells 0-2 /LPF (Few) 05/20/23 01:47
Microbiology Results
Micro:
05/20/23 01:47 Urine Culture - Pending
Urine
05/20/23 01:47 Blood Culture - Pending
Blood/Venous
05/19/23 23:57 Blood Culture - Pending
Blood/Venous
Imaging:
05/20/2023 CT abdomen/pelvis: Official report pending.
Assessment / Plan
Leukocytosis
Obstructive uropathy secondary to nephrolithiasis
- s/p stent placement
AJ
CAD
Hx CVA
Dyslipidemia
Bronchiectasis
HTN
DM
RA
Recommendations:
Continue with cefepime for the present. Given estimated creatinine clearance of 44 today, dose is appropriate. Will continue to monitor creatinine clearance and adjust dose as necessary.
Cultures have been obtained. Will await further culture data to guide antimicrobial selection and de-escalation.
Monitor white count and temperature curve.
[2023-05-20 09:27] LABS: Glucose - Point of Care 136 mg/dl (70-99)
--- NOTE | 2023-05-20 09:29 | PTCARENOTE ---
patient received from [id number]. assessments per work list. santos draining milky urine. monitor nsr, lungs clear, denies pain. generalized anasarca. unable to obtain labs, rfid engineer paged X3 to draw. call gong in reach
[2023-05-20] MEDS: NSS (PRESERVATIVE FREE) 10 ML IV (09:38)
[2023-05-20] MEDS: LANTUS 0.200000000000000011 UNITS SC (09:38)
[2023-05-20] MEDS: PROTONIX IV 40 MG IV (09:39)
--- NOTE | 2023-05-20 10:01 | CM ---
CM following re: discharge planning.
Reviewed pt's chart, met with pt.
Pt is a 67 year old male, admitted with primary dx of Sepsis, UTI.
Pt reports he lives with spouse in a 2SH, 2 steps to enter, has 2 supportive children. 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
PCP: Anabel Martinez
Pharmacy: [facility].
D/C plan: home with anticipated no needs. family to transport at discharge.
CM will follow with discharge plan updates as hospitalization progresses
--- NOTE | 2023-05-20 12:11 | PTCARENOTE ---
Resumed care of patient from previous RN. Resting in bed at time of assessment. NSR on monitor HR 60's.94% RA, lungs diminished. obese round belly. santos draining milky urine. generalized anasarca. pulses weakly palpable. phlebotomy at bedside
obtaining labwork at this time. will continue to monitor.
[2023-05-20 12:31] LABS: Glucose - Point of Care 168 mg/dl (70-99)
[2023-05-20] MEDS: NOVOLOG FLEXPEN-MODERATE RESISTANCE SC (12:58)
[2023-05-20 12:59] LABS: INR 1.58; PT 18.7 Sec (11.4-14.6)
[2023-05-20 13:00] LABS: APTT 37.3 Sec (23.4-35.0)
[2023-05-20 18:02] LABS: Glucose - Point of Care 167 mg/dl (70-99)
[2023-05-20] MEDS: LOVENOX 40 MG SC (18:37)
[2023-05-20] MEDS: NOVOLOG FLEXPEN-MODERATE RESISTANCE 1 UNITS SC (18:38)
[2023-05-20] MEDS: NOVOLOG FLEXPEN 12 UNITS SC (18:39)
[2023-05-20 21:54] LABS: Glucose - Point of Care 109 mg/dl (70-99)
[2023-05-21 03:00] VITALS: BP 118/63
[2023-05-21] MEDS: LR 1000 IV (03:21)
[2023-05-21 06:00] VITALS: BMI 45.9
[2023-05-21 06:38] LABS: % Basophils 0.2 % (0-2); % Eosinophils 0.1 % (0-6); % Immature Granulocytes 0.7 % (0-0.5); % Lymphocytes 8.2 % (20.5-51.1); % Monocytes 5.5 % (1.7-9.3); % Neutrophils 85.3 % (42.2-75.2); Absolute Immature Granulocytes 0.1 10^3/uL (0-0.05); Absolute Lymphocytes 0.9 10^3/uL (1.2-3.4); Absolute Monocytes 0.6 10^3/uL (0.1-0.6); Absolute Neutrophils 9.2 10^3/uL (1.4-6.5); Hematocrit 30.5 % (39.0-52.0); Hemoglobin 9.9 g/dL (13.0-18.0); Mean Corp Hgb Conc. 32.5 g/dL (33.0-37.0); Mean Corpuscular Volume 86.4 fL (80.0-94.0); Mean Platelet Volume 10.4 fL (7.4-10.4); Nucleated Red Blood Cells % 0 % (-); Platelet Count 166 10^3/uL (130-400); Red Blood Cell Count 3.53 10^6/uL (4.70-6.10); Red Cell Dist. Width 16.7 % (11.5-14.5); White Blood Cell Count 10.8 10^3/uL (4.8-10.8)
[2023-05-21 07:08] VITALS: BP 130/61
[2023-05-21 07:22] LABS: ALT (SGPT) 27 U/L (0-50); AST (SGOT) 42 U/L (17-59); Albumin 2.7 g/dl (3.5-5.0); Alkaline Phosphatase 107 U/L (38-126); Blood Urea Nitrogen 49 mg/dl (9-20); Calcium 8.2 mg/dl (8.4-10.2); Carbon Dioxide 21 mmol/L (22-30); Chloride 109 mmol/L (98-107); Estimated Creatinine Clearance 54 ml/min; Glucose 102 mg/dl (70-99); Potassium 3.6 mmol/L (3.5-5.1); Sodium 141 mmol/L (135-145); Total Bilirubin 0.8 mg/dl (0.2-1.3); Total Protein 5.7 g/dl (6.3-8.2); eGFR 37.71
[2023-05-21 08:06] LABS: Glucose - Point of Care 109 mg/dl (70-99)
[2023-05-21] MEDS: NOVOLOG FLEXPEN-MODERATE RESISTANCE SC ×3 (08:13→16:40)
[2023-05-21] MEDS: NSS (PRESERVATIVE FREE) 10 ML IV (08:18)
[2023-05-21] MEDS: LIPITOR 80 MG PO (08:18)
[2023-05-21] MEDS: VITAMIN C 1000 MG PO (08:19)
[2023-05-21] MEDS: PROTONIX IV 40 MG IV (08:19)
[2023-05-21] MEDS: THERAGRAN 1 TABLET PO (08:19)
[2023-05-21] MEDS: VITAMIN D3 (cholecalciferol) 125 MCG PO (08:20)
[2023-05-21] MEDS: PAXIL 20 MG PO (08:20)
[2023-05-21] MEDS: LANTUS 0.299999999999999989 UNITS SC (08:20)
[2023-05-21] MEDS: MAXIPIME 1000 MG IV ×3 (08:20→22:58)
[2023-05-21] MEDS: STERILE WATER FOR INJECTION 10 ML IV ×3 (08:20→22:59)
[2023-05-21] MEDS: NON-FORMULARY ITEM 1 UNIT SC (08:34)
[2023-05-21 08:46] LABS: Glycohemoglobin (HgbA1c) 6.5 % (4.0-5.6)
--- NOTE | 2023-05-21 08:48 | W.PN.HOSP.TC ---
Today's Communication/Plan
-
see bold
Assessment / Plan
Assessment / Plan
HPI: 67-year-old male admitted early this morning for sepsis secondary to infected left ureteral stone.
Status post cystoscopy with purulent urine, 2 left ureteral stents placed by urology on 05/20/2023.
#Sepsis, POA, now resolved
#Acute urinary tract infection
Appreciate ID input, continue cefepime D2, follow-up on urine cultures, blood cultures
#Obstructing distal left ureteral stones (x2) w/ hydronephrosis
#Obstructive uropathy/acute kidney injury
Status post cystoscopy with left ureteral stent placement x 2 on 05/20/2023
Creatinine improved at 1.9 today, was 2.4
Maintain Arias, continue to monitor
Needs to follow-up with urology in the office in 2 weeks for definitive stone management
#Type 2 diabetes
Continue glargine 30 units daily, NovoLog 12 units AC 3 times daily, Mounjaro
Diabetic diet, sliding scale insulin
#Hypotension
Blood pressure improved today at 130/61
Continue holding home blood pressure medicines, resume as needed if blood pressure increases
Will resume Lasix today
#Acute normocytic anemia
Hemoglobin 9.9 today, down from 11.3 upon admission
Likely due to sepsis, monitor
#Coronary artery disease
Continue statin
Urology says can resume Plavix on 05/21
#Morbid obesity due to excess calories
BMI 45
Affects all aspects of care
#Anxiety/depression
Continue SSRI
#Hyperlipidemia
Continue atorvastatin
#Obstructive sleep apnea
Continue CPAP at night
#History of rheumatoid arthritis
Gets Orencia weekly
DVT prophylaxis�Lovenox
Full code
Total time spent to see the patient on the floor, examine the patient, review data and lab results, discuss treatment plan with patient, nursing staff around 51 minutes.
Physical Exam
General: Morbidly obese, no acute distress
HEENT: Normocephalic, Atraumatic, EOMI, MMM
Respiratory: Clear to Auscultation bilaterally
Cardiac: Normal S1/S2, Regular Rate and Rhythm
GI: Soft, Nontender, Nondistended, Normal Bowel Sounds
Extremities: No Clubbing, Cyanosis, or Edema
Neuro: Nonfocal/Grossly Intact
Psych: Calm, Cooperative
Derm: No Visible lesions
Anticipated Discharge: 24 - 48 hours
Subjective/Interval History
-
Date of Service: May 21, 2023
Patient reports feeling well today. No abdominal pain, no flank pain, no fever. No vomiting. No chest pain, no shortness of breath.
Objective Data
-
Labs:
Laboratory Results
05/21/23
05:37
WBC 10.8
Hgb 9.9 L
Hct 30.5 L
Plt Count 166
Sodium 141 D
Potassium 3.6
Chloride 109 H
Carbon Dioxide 21 L
BUN 49 H
Creatinine 1.9 H
Glucose 102 H
Calcium 8.2 L
Total Bilirubin 0.8
AST 42
ALT 27
Alkaline Phosphatase 107
Vital Signs:
Vital Signs
Temp Pulse Resp BP Pulse Ox
97.3 F 84 16 130/61 98
05/21/23 03:00 05/21/23 07:08 05/21/23 07:08 05/21/23 07:08 05/21/23 07:08
I&O
05/20/23 05/21/23 05/22/23
06:59 06:59 06:59
Intake Total 2770 / 2770
Output Total 1490 / 1490 1600 / 1600
Balance 1280 / 1280 -1600 / -1600
[2023-05-21] MEDS: NOVOLOG FLEXPEN 12 UNITS SC ×3 (09:34→17:57)
--- NOTE | 2023-05-21 09:38 | W.PN.ID1 ---
Date of Service
Date of Service: May 21, 2023
Today's Communication
Continue antibiotics. Await final cultures.
Assessment / Plan
Leukocytosis
Obstructive uropathy secondary to nephrolithiasis
- s/p stent placement
AJ
CAD
Hx CVA
Dyslipidemia
Bronchiectasis
HTN
DM
RA
Recommendations:
Leukocytosis improved today. Creatinine clearance is also improved. Cultures remain pending.
Continue with cefepime for the present. Increase cefepime to 1 g IV every 8 hours. Will continue to monitor creatinine clearance and adjust dose as necessary.
Cultures have been obtained. Will await further culture data to guide antimicrobial selection and de-escalation.
Monitor white count and temperature curve.
����������������������������������������������������������
Chief Complaint
-: UTI
Subjective / Review of Systems
Review of Systems: No Fever and No Chills
Vital Signs / Physical Exam
Vital Signs
Vital Signs
Temp Pulse Resp BP Pulse Ox
97.3 F 84 16 130/61 98
05/21/23 03:00 05/21/23 07:08 05/21/23 07:08 05/21/23 07:08 05/21/23 08:00
Physical Exam
Constitutional: No Acute Distress, Comfortable and Non-toxic
Eyes: No Conjunctival Hemorrhage and Sclera Anicteric
Cardiovascular: S1/S2; Negative S3/S4
Pulmonary: Non Labored; Negative Wheezes
Gastrointestinal: Soft, Non Tender and Non Distended
Genito-Urinary: Arias and Clear Urine; Negative Turbid Urine or Hematuria
Skin: Warm and Dry; Negative Rash or Jaundice
Neurological: Awake and Alert
Psychological: Calm
Objective Data
Lab Data
Lab Results
05/21/23 05:37
05/21/23 05:37
PT 18.7 Sec (11.4-14.6) H 05/20/23 12:10
INR 1.58 05/20/23 12:10
APTT 37.3 Sec (23.4-35.0) H 05/20/23 12:10
Estimated Creat Clear 54 ml/min 05/21/23 05:37
Lactic Acid Cancelled 05/20/23 19:04
Total Bilirubin 0.8 mg/dl (0.2-1.3) 05/21/23 05:37
AST 42 U/L (17-59) 05/21/23 05:37
ALT 27 U/L (0-50) 05/21/23 05:37
Alkaline Phosphatase 107 U/L (38-126) 05/21/23 05:37
Most recent labs reviewed.
Micro Results:
05/20/23 01:47 Blood Culture - Preliminary
Blood/Venous No Growth in 24 hours- Final report to follow
05/19/23 23:57 Blood Culture - Preliminary
Blood/Venous No Growth in 24 hours- Final report to follow
05/20/23 09:27 MRSA Screen - Pending
Nose
05/20/23 01:47 Urine Culture - Pending
Urine
Imaging:
05/20/2023 CT abdomen/pelvis: Left-sided obstructive uropathy secondary to two 5 mm calculi at the left ureterovesical junction. Cannot exclude superimposed infection/pyelonephritis. Numerous additional nonobstructing left intrarenal calculi.
Nonobstructing 9 mm right renal pelvis calculus. Cholelithiasis without CT evidence of acute cholecystitis. Cirrhosis. Stable mild splenomegaly. Few small proximal left para-aortic lymph nodes which are slightly prominent, though not grossly
enlarged. There is associated adjacent soft tissue stranding, likely inflammatory/reactive. Mild to moderate fecal burden and mild distention in the rectum. Few diverticula. No evidence of acute diverticulitis.
[2023-05-21 11:30] VITALS: BP 116/59
[2023-05-21 11:52] LABS: Glucose - Point of Care 140 mg/dl (70-99)
[2023-05-21] MEDS: LASIX 40 MG PO (12:17)
--- NOTE | 2023-05-21 13:55 | CM ---
Leukocytosis and CR are improving. Cultures pending. Discharge Plan of Care: Home with no needs.
[2023-05-21 15:02] VITALS: BP 128/67
[2023-05-21 16:31] LABS: Glucose - Point of Care 77 mg/dl (70-99)
[2023-05-21] MEDS: LOVENOX 40 MG SC (17:39)
[2023-05-21 19:11] VITALS: BP 123/61
[2023-05-21 21:26] LABS: Glucose - Point of Care 86 mg/dl (70-99)
[2023-05-21 23:04] VITALS: BP 140/68
[2023-05-22 03:31] VITALS: BP 123/64
[2023-05-22 05:09] LABS: Hematocrit 30.4 % (39.0-52.0); Hemoglobin 10.2 g/dL (13.0-18.0); Mean Corp Hgb Conc. 33.6 g/dL (33.0-37.0); Mean Corpuscular Hgb 28.3 pg (27.0-31.0); Mean Corpuscular Volume 84.4 fL (80.0-94.0); Mean Platelet Volume 9.7 fL (7.4-10.4); Platelet Count 170 10^3/uL (130-400); Red Cell Dist. Width 16.8 % (11.5-14.5); White Blood Cell Count 8.8 10^3/uL (4.8-10.8)
[2023-05-22 05:36] LABS: Blood Urea Nitrogen 41 mg/dl (9-20); Calcium 7.9 mg/dl (8.4-10.2); Carbon Dioxide 22 mmol/L (22-30); Chloride 110 mmol/L (98-107); Estimated Creatinine Clearance 57 ml/min; Glucose 94 mg/dl (70-99); Magnesium 1.9 mg/dl (1.6-2.3); Potassium 3.3 mmol/L (3.5-5.1); Sodium 138 mmol/L (135-145); eGFR 40.24
[2023-05-22] MEDS: STERILE WATER FOR INJECTION 10 ML IV ×3 (05:41→21:26)
[2023-05-22] MEDS: MAXIPIME 1000 MG IV ×3 (05:41→21:25)
[2023-05-22 06:00] VITALS: BMI 45.5
--- NOTE | 2023-05-22 06:52 | W.PN.HOSP.TC ---
Today's Communication/Plan
-
cont with abx as per ID
follow cultures
monitor renal function
cont home lasix
Glycemic control
Blood pressure control
Assessment / Plan
Assessment / Plan
HPI: 67-year-old male admitted early this morning for sepsis secondary to infected left ureteral stone.
Status post cystoscopy with purulent urine, 2 left ureteral stents placed by urology on 05/20/2023.
#Sepsis, POA, now resolved
#Acute urinary tract infection
Appreciate ID input, continue cefepime D3, urine culture no significant growth, blood cultures NGTD
#Obstructing distal left ureteral stones (x2) w/ hydronephrosis
#Obstructive uropathy/acute kidney injury
Status post cystoscopy with left ureteral stent placement x 2 on 05/20/2023
Creatinine improved 1.8 from initial 2.4
Maintain Arias, continue to monitor
Needs to follow-up with urology in the office in 2 weeks for definitive stone management
#Type 2 diabetes
Continue glargine 30 units daily, NovoLog 12 units AC 3 times daily, Mounjaro
Diabetic diet, sliding scale insulin
#Hypotension
Blood pressure improved today at 130/61
Continue holding home blood pressure medicines, resume as needed if blood pressure increases
cont home Lasix with holding parameters
#Acute normocytic anemia
Likely due to sepsis, monitor
H&H stable
#Coronary artery disease
Continue statin
Urology eval appreciated resumed Plavix on 05/21
#Morbid obesity due to excess calories
BMI 45
Affects all aspects of care
#Anxiety/depression
Continue SSRI
#Hyperlipidemia
Continue atorvastatin
#Obstructive sleep apnea
Continue CPAP at night
#History of rheumatoid arthritis
Gets Orencia weekly
DVT prophylaxis�Lovenox
Full code
Total time spent to see the patient on the floor, examine the patient, review data and lab results, discuss treatment plan with patient, nursing staff around 53 minutes.
Physical Exam
General: Morbidly obese, no acute distress
HEENT: Normocephalic, Atraumatic, EOMI, MMM
Respiratory: Clear to Auscultation bilaterally
Cardiac: Normal S1/S2, Regular Rate and Rhythm
GI: Soft, Nontender, Nondistended, Normal Bowel Sounds
Extremities: No Clubbing, Cyanosis, or Edema
Neuro: Nonfocal/Grossly Intact
Psych: Calm, Cooperative
Derm: No Visible lesions
Anticipated Discharge: 24 - 48 hours
Subjective/Interval History
-
Date of Service: May 22, 2023
No acute distress sitting up comfortably in chair. Reports feeling well, pain resolved. Denies new acute issues at this time.
Objective Data
-
Labs:
Laboratory Results
05/22/23
04:30
WBC 8.8
Hgb 10.2 L
Hct 30.4 L
Plt Count 170
Sodium 138
Potassium 3.3 L
Chloride 110 H
Carbon Dioxide 22
BUN 41 H
Creatinine 1.8 H
Glucose 94
Calcium 7.9 L
Vital Signs:
Vital Signs
Temp Pulse Resp BP Pulse Ox
98.1 F 76 18 123/64 98
05/22/23 03:31 05/22/23 03:31 05/22/23 03:31 05/22/23 03:31 05/22/23 03:31
I&O
05/20/23 05/21/23 05/22/23
06:59 06:59 06:59
Intake Total 2770 / 2770 1200 / 1200
Output Total 1490 / 1490 3250 / 3250
Balance 1280 / 1280 -2049 / -2049
[2023-05-22 07:35] VITALS: BP 130/69
--- NOTE | 2023-05-22 07:50 | W.PN.URO.CBU ---
Today's Communication / Plan
-
IV Cefepime pending ID recs
F/U with Dr. Mcneil in 2 weeks for preop visit
Will schedule definitive stone surgery (bilateral URS/LL/stone extraction/stent exchange)
OK to resume Plavix - hematuria expected w/ indwelling ureteral stents
D/w patient and spouse
Assessment / Plan
-
Urosepsis
AJ
Proximal right ureteral stone
Obstructing distal left ureteral stones (x2) w/ hydronephrosis
05/19: s/p cystoscopy and left UO stone manipulation, bilateral ureteral stent placement (6Fr x 26 cm JJ)
WBC wnl
Cr 1.8 (from 2.4 on admission)
UCx: sparse growth
BCx x2: NG
Diagnosis
-
Date of Service: May 22, 2023
-
Patient Diagnosis:
Urosepsis
AJ
Proximal right ureteral stone
Obstructing distal left ureteral stones (x2) w/ hydronephrosis
Post Op Day:
05/19: s/p cystoscopy and left UO stone manipulation, bilateral ureteral stent placement (6Fr x 26 cm JJ)
Subjective
-
Denies F/C.
Tolerating diet.
Feeling dramatically improved since Sunday.
Arias catheter removed 05/20.
Objective
-
Vital Signs
Temp Pulse Resp BP Pulse Ox
97.6 F 79 19 130/69 97
05/22/23 07:35 05/22/23 07:35 05/22/23 07:35 05/22/23 07:35 05/22/23 07:35
Intake and Output
05/21/23 05/22/23 05/23/23
06:59 06:59 06:59
Intake Total 2770 / 2770 1200 / 1200
Output Total 1490 / 1490 3250 / 3250
Balance 1280 / 1280 -2049 / -2049
Intake:
Oral fluids 900 / 900 1200 / 1200
IV fluids (Total) 1869 / 1869
Lr 1,000 ml @ 100 mls/hr IV . 300 / 300
Q10H MITESH Rx#:[id number]
Sterile Water For Injection 90 / 90
1000 ml 1,000 ml @ 30 mls/hr IV
.Q24H MITESH with Sodium
Bicarbonate 150 Meq Rx#:
[id number]
normal saline 600 / 600
Output:
Urine, Arias 1490 / 1490 2800 / 2800
Urine, Voided 450 / 450
Other:
Number of approximated MODERATE 2
amounts of urine
Laboratory Results
05/22/23 04:30
05/22/23 04:30
Physical Exam
-
General - well developed, well nourished, no acute distress
Abdomen - soft, non-tender, no CVAT
Genitalia - normal
Skin - warm & dry with no rash
Neuro - AOx3, no motor deficits
Extremities - no clubbing, no cyanosis, no edema
Care Review
Data Reviewed
Discussed with: Hospitalist and Family
CT Scan: Report Pers Reviewed and Image Pers Reviewed
[2023-05-22 07:54] LABS: Glucose - Point of Care 103 mg/dl (70-99)
[2023-05-22] MEDS: NOVOLOG FLEXPEN-MODERATE RESISTANCE SC ×3 (09:54→18:17)
[2023-05-22] MEDS: NOVOLOG FLEXPEN 12 UNITS SC ×2 (09:54→18:17)
[2023-05-22] MEDS: LANTUS 0.299999999999999989 UNITS SC (09:55)
[2023-05-22] MEDS: PLAVIX 75 MG PO (09:57)
[2023-05-22] MEDS: VITAMIN D3 (cholecalciferol) 125 MCG PO (09:58)
[2023-05-22] MEDS: LASIX 40 MG PO (09:58)
[2023-05-22] MEDS: VITAMIN C 1000 MG PO (09:58)
[2023-05-22] MEDS: LIPITOR 80 MG PO (09:58)
[2023-05-22] MEDS: PROTONIX IV 40 MG IV (09:59)
[2023-05-22] MEDS: THERAGRAN 1 TABLET PO (09:59)
[2023-05-22] MEDS: NSS (PRESERVATIVE FREE) 10 ML IV (09:59)
[2023-05-22] MEDS: PAXIL 20 MG PO (10:00)
[2023-05-22 11:25] VITALS: BP 138/73
--- NOTE | 2023-05-22 11:30 | W.PN.ID1 ---
Date of Service
Date of Service: May 22, 2023
Today's Communication
Continue antibiotics. Await final culture data to guide antimicrobial selection and de-escalation.
Assessment / Plan
Leukocytosis
Obstructive uropathy secondary to nephrolithiasis
- s/p stent placement
AJ
CAD
Hx CVA
Dyslipidemia
Bronchiectasis
HTN
DM
RA
Recommendations:
Leukocytosis improved today. Creatinine clearance is also improved. Cultures remain pending as only sparse growth was seen on culture.
Continue with cefepime for the present. Will continue to monitor creatinine clearance and adjust dose as necessary.
Cultures have been obtained. Will await further culture data to guide antimicrobial selection and de-escalation.
Monitor white count and temperature curve.
����������������������������������������������������������
Chief Complaint
-: UTI and Other (Obstructive uropathy)
Subjective / Review of Systems
Patient seen and examined. Overall feels well. Arias has been removed.
Review of Systems: No Fever and No Chills
Vital Signs / Physical Exam
Vital Signs
Vital Signs
Temp Pulse Resp BP Pulse Ox
98.3 F 79 19 138/73 97
05/22/23 11:25 05/22/23 11:25 05/22/23 11:25 05/22/23 11:25 05/22/23 11:25
Physical Exam
Constitutional: No Acute Distress, Comfortable and Non-toxic
Eyes: Sclera Anicteric
Cardiovascular: S1/S2; Negative S3/S4
Pulmonary: Non Labored
Gastrointestinal: Soft, Non Tender, Non Distended and Normal Bowel Sounds
Genito-Urinary: Negative CVA Tenderness
Neurological: Awake and Alert
Objective Data
Lab Data
Lab Results
05/22/23 04:30
05/22/23 04:30
PT 18.7 Sec (11.4-14.6) H 05/20/23 12:10
INR 1.58 05/20/23 12:10
APTT 37.3 Sec (23.4-35.0) H 05/20/23 12:10
Estimated Creat Clear 57 ml/min 05/22/23 04:30
Lactic Acid Cancelled 05/20/23 19:04
Total Bilirubin 0.8 mg/dl (0.2-1.3) 05/21/23 05:37
AST 42 U/L (17-59) 05/21/23 05:37
ALT 27 U/L (0-50) 05/21/23 05:37
Alkaline Phosphatase 107 U/L (38-126) 05/21/23 05:37
Most recent labs reviewed.
Micro Results:
05/20/23 01:47 Blood Culture - Preliminary
Blood/Venous No Growth in 48 hours- Final report to follow
05/19/23 23:57 Blood Culture - Preliminary
Blood/Venous No Growth in 48 hours- Final report to follow
05/20/23 09:27 MRSA Screen - Final
Nose Staph aureus MRSA
05/20/23 01:47 Urine Culture - Preliminary
Urine Sparse growth, too young to be identified. Further results
to follow.
Imaging:
05/20/2023 CT abdomen/pelvis: Left-sided obstructive uropathy secondary to two 5 mm calculi at the left ureterovesical junction. Cannot exclude superimposed infection/pyelonephritis. Numerous additional nonobstructing left intrarenal calculi.
Nonobstructing 9 mm right renal pelvis calculus. Cholelithiasis without CT evidence of acute cholecystitis. Cirrhosis. Stable mild splenomegaly. Few small proximal left para-aortic lymph nodes which are slightly prominent, though not grossly
enlarged. There is associated adjacent soft tissue stranding, likely inflammatory/reactive. Mild to moderate fecal burden and mild distention in the rectum. Few diverticula. No evidence of acute diverticulitis.
[2023-05-22] MEDS: KCL 40 MEQ PO (11:42)
[2023-05-22 11:50] LABS: Glucose - Point of Care 136 mg/dl (70-99)
[2023-05-22] MEDS: NOVOLOG FLEXPEN SC (13:09)
[2023-05-22 15:26] VITALS: BP 118/72
--- NOTE | 2023-05-22 15:26 | CM ---
Pending cultures. Per MD, unknown at this time if patient will discharge with IV/AB. ID needs to review culture results and will make determination of discharge plan of care at that time. Discharge needs: TBD.
[2023-05-22] MEDS: TYLENOL 1000 MG PO (16:57)
[2023-05-22 17:19] LABS: Glucose - Point of Care 92 mg/dl (70-99)
[2023-05-22] MEDS: LOVENOX 40 MG SC (18:19)
[2023-05-22 21:44] VITALS: BP 140/71
[2023-05-22 21:44] LABS: Glucose - Point of Care 93 mg/dl (70-99)
[2023-05-22 23:00] VITALS: BP 128/66
[2023-05-23 03:30] VITALS: BP 126/71
[2023-05-23] MEDS: MAXIPIME 1000 MG IV (05:35)
[2023-05-23] MEDS: STERILE WATER FOR INJECTION 10 ML IV (05:36)
[2023-05-23 05:40] LABS: Hematocrit 30.8 % (39.0-52.0); Hemoglobin 10.1 g/dL (13.0-18.0); Mean Corp Hgb Conc. 32.8 g/dL (33.0-37.0); Mean Corpuscular Hgb 28.4 pg (27.0-31.0); Mean Corpuscular Volume 86.5 fL (80.0-94.0); Mean Platelet Volume 9.9 fL (7.4-10.4); Platelet Count 177 10^3/uL (130-400); Red Blood Cell Count 3.56 10^6/uL (4.70-6.10); Red Cell Dist. Width 17.1 % (11.5-14.5); White Blood Cell Count 7.9 10^3/uL (4.8-10.8)
[2023-05-23 06:00] VITALS: BMI 45.5
[2023-05-23 06:09] LABS: Blood Urea Nitrogen 33 mg/dl (9-20); Calcium 8.2 mg/dl (8.4-10.2); Carbon Dioxide 23 mmol/L (22-30); Chloride 109 mmol/L (98-107); Estimated Creatinine Clearance 57 ml/min; Glucose 105 mg/dl (70-99); Phosphorus 4.1 mg/dl (2.5-4.5); Potassium 3.2 mmol/L (3.5-5.1); Sodium 138 mmol/L (135-145); eGFR 40.24
[2023-05-23 07:05] VITALS: BP 139/80
--- NOTE | 2023-05-23 08:34 | W.PN.HOSP.TC ---
Today's Communication/Plan
-
discharge
Assessment / Plan
Assessment / Plan
HPI: 67-year-old male admitted early this morning for sepsis secondary to infected left ureteral stone.
Status post cystoscopy with purulent urine, 2 left ureteral stents placed by urology on 05/20/2023.
#Sepsis, POA, now resolved
#Acute urinary tract infection
received empiric cefepime 4 days, urine culture no significant growth, blood cultures NGTD
ID eval appreciated convert to Keflex for 7 more days.
#Obstructing distal left ureteral stones (x2) w/ hydronephrosis
#Obstructive uropathy/acute kidney injury
#AJ on CKD III
Status post cystoscopy with left ureteral stent placement x 2 on 05/20/2023
Creatinine improved 1.8 from initial 2.4
Maintain Arias, continue to monitor
Needs to follow-up with urology in the office in 2 weeks for definitive stone management
#Type 2 diabetes
Continue glargine 30 units daily, NovoLog 12 units AC 3 times daily, Mounjaro
Diabetic diet, sliding scale insulin
#Hypotension resolved
home Lasix resumed with holding parameters, tolerating well
Continue hold nifedipine losartan, outpatient follow up with primary to determine when safe to resume/if necessary to resume
Ok to resume home propranolol
#Hypokalemia
monitor and replete as necessary
#Acute normocytic anemia
Likely due to sepsis, monitor
H&H stable
#Coronary artery disease
Continue statin
Urology eval appreciated resumed Plavix on 05/21
resume home propranolol as above
#Morbid obesity due to excess calories
BMI 45
Affects all aspects of care
#Anxiety/depression
Continue SSRI
#Hyperlipidemia
Continue atorvastatin
#Obstructive sleep apnea
Continue CPAP at night
#History of rheumatoid arthritis
Gets Orencia weekly
DVT prophylaxis�Lovenox
Full code
Patient observed ambulating without issues. Denies any issues with ambulation
Medically stable for discharge home with outpatient follow up recommendations.
Total Time Preparing Discharge ___50____ minutes including examination of the patient, summary of the hospital stay, instructions for continuing care to all relevant caregivers; and preparation of discharge records, prescriptions, and referral
forms if necessary.
Physical Exam
General: Morbidly obese, no acute distress
HEENT: Normocephalic, Atraumatic, EOMI, MMM
Respiratory: Clear to Auscultation bilaterally
Cardiac: Normal S1/S2, Regular Rate and Rhythm
GI: Soft, Nontender, Nondistended, Normal Bowel Sounds
Extremities: No Clubbing, Cyanosis, or Edema
Neuro: AOx3
Psych: Calm, Cooperative
Derm: No Visible lesions
Anticipated Discharge: Today
Subjective/Interval History
-
Date of Service: May 23, 2023
Seen and examined at bedside in no acute distress sitting up comfortably in bed. Reports overall feeling well. Denies new acute issues at this time. Denies dysuria flank pain. Eager to go home. Ambulating without issues.
Objective Data
-
Labs:
Laboratory Results
05/23/23
05:26
WBC 7.9
Hgb 10.1 L
Hct 30.8 L
Plt Count 177
Sodium 138
Potassium 3.2 L
Chloride 109 H
Carbon Dioxide 23
BUN 33 H
Creatinine 1.8 H
Glucose 105 H
Calcium 8.2 L
Vital Signs:
Vital Signs
Temp Pulse Resp BP Pulse Ox
97.6 F 76 18 139/80 96
05/23/23 07:05 05/23/23 07:05 05/23/23 07:05 05/23/23 07:05 05/23/23 07:05
I&O
05/22/23 05/23/23 05/24/23
06:59 06:59 06:59
Intake Total 1200 / 1200 2400 / 2400
Output Total 3250 / 3250
Balance -2049 / -2049 2400 / 2400
[2023-05-23 08:56] LABS: Glucose - Point of Care 107 mg/dl (70-99)
[2023-05-23] MEDS: VITAMIN C 1000 MG PO (09:17)
[2023-05-23] MEDS: LIPITOR 80 MG PO (09:17)
[2023-05-23] MEDS: PAXIL 20 MG PO (09:18)
[2023-05-23] MEDS: THERAGRAN 1 TABLET PO (09:18)
[2023-05-23] MEDS: LASIX 40 MG PO (09:18)
[2023-05-23] MEDS: NSS (PRESERVATIVE FREE) 10 ML IV (09:18)
[2023-05-23] MEDS: PROTONIX IV 40 MG IV (09:18)
[2023-05-23] MEDS: PLAVIX 75 MG PO (09:18)
[2023-05-23] MEDS: VITAMIN D3 (cholecalciferol) 125 MCG PO (09:18)
[2023-05-23] MEDS: LANTUS 0.299999999999999989 UNITS SC (09:19)
[2023-05-23] MEDS: NOVOLOG FLEXPEN-MODERATE RESISTANCE SC (09:19)
[2023-05-23] MEDS: NOVOLOG FLEXPEN 12 UNITS SC ×2 (09:20→12:41)
--- NOTE | 2023-05-23 09:51 | W.PN.ID1 ---
Date of Service
Date of Service: May 23, 2023
Today's Communication
Transition to oral Keflex.
Assessment / Plan
Leukocytosis
Obstructive uropathy secondary to nephrolithiasis
- s/p stent placement
AJ
CAD
Hx CVA
Dyslipidemia
Bronchiectasis
HTN
DM
RA
Recommendations:
Patient overall feels well today. Leukocytosis resolved. Creatinine clearance stable. Urine cultures negative.
Transition to oral Keflex 500 mg p.o. 4 times daily for an additional 7 days of therapy.
Patient will follow-up with Urology as an outpatient for definitive stone management.
����������������������������������������������������������
Chief Complaint
-: UTI and Other (Obstructive uropathy)
Subjective / Review of Systems
Review of Systems: No Fever, No Chills and No Dysuria
Vital Signs / Physical Exam
Vital Signs
Vital Signs
Temp Pulse Resp BP Pulse Ox
97.6 F 76 18 139/80 96
05/23/23 07:05 05/23/23 07:05 05/23/23 07:05 05/23/23 07:05 05/23/23 07:05
Physical Exam
Constitutional: No Acute Distress, Comfortable and Non-toxic
Cardiovascular: S1/S2; Negative S3/S4
Pulmonary: Negative Wheezes
Gastrointestinal: Soft and Non Tender
Genito-Urinary: Negative CVA Tenderness
Neurological: Awake and AO x 3
Psychological: Calm
Objective Data
Lab Data
Lab Results
05/23/23 05:26
05/23/23 05:26
PT 18.7 Sec (11.4-14.6) H 05/20/23 12:10
INR 1.58 05/20/23 12:10
APTT 37.3 Sec (23.4-35.0) H 05/20/23 12:10
Estimated Creat Clear 57 ml/min 05/23/23 05:26
Lactic Acid Cancelled 05/20/23 19:04
Total Bilirubin 0.8 mg/dl (0.2-1.3) 05/21/23 05:37
AST 42 U/L (17-59) 05/21/23 05:37
ALT 27 U/L (0-50) 05/21/23 05:37
Alkaline Phosphatase 107 U/L (38-126) 05/21/23 05:37
Most recent labs reviewed.
Micro Results:
05/20/23 01:47 Blood Culture - Preliminary
Blood/Venous No Growth in 72 hours- Final report to follow
05/19/23 23:57 Blood Culture - Preliminary
Blood/Venous No Growth in 72 hours- Final report to follow
05/20/23 01:47 Urine Culture - Final
Urine No Significant Growth
05/20/23 09:27 MRSA Screen - Final
Nose Staph aureus MRSA
Imaging:
05/20/2023 CT abdomen/pelvis: Left-sided obstructive uropathy secondary to two 5 mm calculi at the left ureterovesical junction. Cannot exclude superimposed infection/pyelonephritis. Numerous additional nonobstructing left intrarenal calculi.
Nonobstructing 9 mm right renal pelvis calculus. Cholelithiasis without CT evidence of acute cholecystitis. Cirrhosis. Stable mild splenomegaly. Few small proximal left para-aortic lymph nodes which are slightly prominent, though not grossly
enlarged. There is associated adjacent soft tissue stranding, likely inflammatory/reactive. Mild to moderate fecal burden and mild distention in the rectum. Few diverticula. No evidence of acute diverticulitis.
Care Review
Plan reviewed with: Physician (Hospitalist)
[2023-05-23 11:00] VITALS: BP 114/65
[2023-05-23 12:23] LABS: Glucose - Point of Care 153 mg/dl (70-99)
[2023-05-23] MEDS: NOVOLOG FLEXPEN-MODERATE RESISTANCE 1 UNITS SC (12:41)
[2023-05-23] MEDS: KEFLEX 500 MG PO (12:42)
--- NOTE | 2023-05-23 13:20 | W.DCSUMMARY ---
Discharge Summary
Discharge Data
Date of Admission: 05/20/23
Date of Discharge: 05/23/23
-
Pending Results: Yes
Additional Pending Results:
official blood culture results
Hospital Course
67M admitted for sepsis secondary to infected left ureteral stone. Cystoscopy performed with purulent urine drained, 2 left ureteral stents placed by urology on 05/20/2023. Sepsis, POA, resolved, acute urinary tract infection, received empiric
cefepime 4 days, urine culture no significant growth, blood cultures NGTD. ID evaluated and converted to Keflex for 7 more days. Obstructing distal left ureteral stones (x2) w/ hydronephrosis, Obstructive uropathy/acute kidney injury, AJ on CKD
III, status post cystoscopy with left ureteral stent placement x 2 on 05/20/2023. Creatinine improved 1.8 from initial 2.4. Follow-up with urology in the office in 2 weeks for definitive stone management was recommended. Hypotension resolved, home
Lasix was resumed with holding parameters, tolerated well. Continue hold nifedipine losartan, outpatient follow up with primary to determine when safe to resume/if necessary to resume. Ok to resume home propranolol. Acute normocytic anemia likely
due to sepsis, H&H stable, outpatient follow up recommended. Hx Coronary artery disease, statin was continued. Urology recommended resuming Plavix on 05/21. Medicall stable, patient was discharged home with outpatient follow up recommendations.
Discharge Plan
-
Patient Disposition: Home (Routine Discharge)
Discharge Diagnosis/Procedures: obstructing distal left ureteral stones with hydronephrosis, Obstructive Uropathy secondary to nephrolithiasis status post bilateral ureteral stent placement, proximal right ureteral stone, Acute Kidney Injury on
Chronic Kidney Disease Stage III, Coronary artery Disease, history stroke, hyperlipidemia, hypertension, diabetes, rheumatoid arthritis, Sepsis due to urinary tract infection, Morbid Obesity, Anxiety/Depression, Obstructive Sleep Apnea, Mild
Hypokalemia, GARG cirrhosis
Condition: Good
Diet: Diabetic, Carb Controlled
Activity: As tolerated
Driving Restrictions: As prior to admission
Bathing Restrictions: None
Blood Work: Please repeat CBC and BMP with primary care provider in 1 week of discharge
Activity Restrictions/Additional Instructions:
Please follow up with primary care provider in 1 week of discharge and urology in 2 weeks of discharge.
Keflex has been prescribed for 7 more days to treat urinary tract infection.
Potassium supplementation has been prescribed for hypokalemia likely due to diuresis from home Lasix. Hold if not taking diuretic/lasix. Discontinue if resuming home Losartan
Losartan has been placed on hold due to relative low pressures and acute kidney injury on chronic kidney disease stage III. Nifedipine has similarly been placed on hold due to relatively soft pressures. Please follow up with primary care provider
in 1 week of discharge to determine when safe to resume/if necessary to resume.
Please take medications as prescribed/recommended and follow up with primary care provider and/or other healthcare provider involved in your care for refills and/or further adjustments to your medication regimen as necessary.
Instructions: Ureteral Stent (DC)
Referrals:
Polo Mcneil MD [Active] - in two weeks
Anabel Bonilla DO [Family Provider] - in one week
Prescriptions:
New
potassium chloride 20 mEq tablet extended release
20 meq PO DAILY 30 Days Qty: 30 0RF
Rx Instructions:
Hold if not taking diuretic/Lasix, discontinue if restarting Losartan
Continued
paroxetine HCl 20 MG tablet
20 mg PO DAILY
Patient Comments:
he thought it could be 10mg
propranolol 10 MG tablet
20 mg PO BID
furosemide [Lasix] 20 MG tablet
40 mg PO DAILY
Hold Instructions: resume in 2 days
atorvastatin 80 mg Tablet
80 mg PO DAILY
ascorbic acid (vitamin C) [Vitamin C] 1,000 mg Tablet
1,000 mg PO DAILY
clopidogrel [Plavix] 75 mg Tablet
75 mg PO DAILY
cholecalciferol (vitamin D3) [Vitamin D3] 125 mcg (5,000 unit) Tablet
125 mcg PO DAILY
Orencia 125 mg/mL Syringe
125 mg SC QWEEK
Mounjaro 7.5 mg/0.5 mL Pen Injector
7.5 mg SC QWEEK
insulin aspart U-100 [Novolog FlexPen U-100 Insulin] 100 unit/mL (3 mL) insulin pen
12 unit SC TID
Rx Instructions:
new dose
insulin degludec [Tresiba FlexTouch U-100]
30 unit SC DAILY
Rx Instructions:
new dose
Held
losartan 50 MG tablet
50 mg PO BID
Hold Instructions: resume in 2 days
nifedipine 60 mg Tablet Extended Release
60 mg PO DAILY
Hold Instructions: Follow up with primary care provider in 1 week of discharge to determine when safe to resume/if necessary to resume.
No Action
multivitamin Tablet
1 tab PO DAILY
Discharge Orders:
Discharge Patient (As Directed); Ordered 05/23/23
Ordered By: Ashlyn Willard
Discharge Date and Time
Discharge Date/Time: 05/23/23 15:50
Print Language: FRISIAN
[2023-05-23] MEDS: KCL 40 MEQ PO (14:13)
--- NOTE | 2023-05-23 14:24 | CM ---
Patient seen in chair. CM offered VN to patient, declines at this time. IMM reviewed, signed, placed in patients chart. Patient reports his will be providing transportation home. CM will continue to follow for discharge planning needs.
Plan; home with , no needs.
[2023-05-23 15:22] VITALS: BP 153/71
== END 2023-05-23 15:50 | disposition home or self-care (01) | DRG 853 ==
LOC: 2 SOUTH 06:06
PROVIDERS: Emergency Medicine; Family Medicine; Surgery; ADMITTING PHYSICIAN Internal Medicine; ATTENDING PHYSICIAN Internal Medicine; CONSULT PHYSICIAN Internal Medicine Infectious Disease; EMERGENCY PHYSICIAN Emergency Medicine; FAMILY PHYSICIAN Family Medicine; OTHER PHYSICIAN Internal Medicine Critical Care Medicine
PROC: 0T788DZ Dilation of Bilateral Ureters with Intraluminal Device, Via Natural or Artificial Opening Endoscopic (ICD-10-PCS; 2023-05-20)
PROC: 5A09357 Assistance with Respiratory Ventilation, Less than 24 Consecutive Hours, Continuous Positive Airway Pressure (ICD-10-PCS; 2023-05-20)
DX: A41.9 Sepsis, unspecified organism (principal); G92.8 Other toxic encephalopathy; E87.20 Acidosis, unspecified; N17.9 Acute kidney failure, unspecified; Z68.42 Body mass index [BMI] 45.0-49.9, adult; J84.9 Interstitial pulmonary disease, unspecified; I69.354 Hemiplegia and hemiparesis following cerebral infarction affecting left non-dominant side; G61.0 Guillain-Barre syndrome; N13.6 Pyonephrosis; N13.8 Other obstructive and reflux uropathy; N18.30 Chronic kidney disease, stage 3 unspecified; E11.22 Type 2 diabetes mellitus with diabetic chronic kidney disease; I12.9 Hypertensive chronic kidney disease with stage 1 through stage 4 chronic kidney disease, or unspecified chronic kidney disease; J47.9 Bronchiectasis, uncomplicated; E78.00 Pure hypercholesterolemia, unspecified; M06.9 Rheumatoid arthritis, unspecified; E11.36 Type 2 diabetes mellitus with diabetic cataract; I25.10 Atherosclerotic heart disease of native coronary artery without angina pectoris; E66.01 Morbid (severe) obesity due to excess calories; G47.33 Obstructive sleep apnea (adult) (pediatric); D89.0 Polyclonal hypergammaglobulinemia; R09.02 Hypoxemia; R06.89 Other abnormalities of breathing; F41.9 Anxiety disorder, unspecified; R65.20 Severe sepsis without septic shock; F32.A Depression, unspecified; E87.6 Hypokalemia; H10.30 Unspecified acute conjunctivitis, unspecified eye; M60.9 Myositis, unspecified; Z96.653 Presence of artificial knee joint, bilateral; Z79.4 Long term (current) use of insulin; Z87.442 Personal history of urinary calculi; Z86.711 Personal history of pulmonary embolism; Z95.5 Presence of coronary angioplasty implant and graft; Z82.49 Family history of ischemic heart disease and other diseases of the circulatory system; Z82.5 Family history of asthma and other chronic lower respiratory diseases
CPT/HCPCS: 51701; 71045; 74019; 74176; 76000; 80048; 80053; 81003; 81015; 82962; 83036; 83605; 83735; 84100; 85025; 85027; 85610; 85730; 87040; 87070; 87086; 87147; 93005; 96361; 96365; 99291; C1769; C2617

== ENCOUNTER 2023-06-08 06:33 | Day surgery (SDC) | payer BC, OTHER, SELFPAY ==
--- NOTE | 2023-06-04 11:15 | PTCARENOTE ---
Anca at 's office was notified of elevated INR from 05/20/23 and low K+ collected on 05/23/23.
--- NOTE | 2023-06-05 12:33 | PTCARENOTE ---
K 3.[address] Do.
[2023-06-08] VITALS (9 sets, daily range): BP systolic 111–149; BP diastolic 53–79; BMI 48.0
[2023-06-08 15:22] LABS: Glucose - Point of Care 105 mg/dl (70-99)
[2023-06-08 17:15] LABS: Glucose - Point of Care 90 mg/dl (70-99)
[2023-06-08] MEDS: Pyridium 200 MG PO (17:16)
[2023-06-08] MEDS: DETROL LA 2 MG PO (17:16)
[2023-06-14 11:34] LABS: Stone Analysis Mass 53 mg
== END 2023-06-08 18:25 | disposition home or self-care (01) ==
LOC: SDS 06:33
PROVIDERS: ATTENDING PHYSICIAN Surgery
DX: N13.2 Hydronephrosis with renal and ureteral calculous obstruction (principal); Z87.440 Personal history of urinary (tract) infections
CPT/HCPCS: 52356; 74018; 76000; 82365; 82962; C1769; C1894; C2617

== ENCOUNTER → 2023-12-24 08:11 | Outpatient (REF) | payer BC, OTHER, SELFPAY | LOC: HWRAD 08:11 | PROVIDERS: ATTENDING PHYSICIAN Family Medicine; REFERRING PHYSICIAN Internal Medicine Endocrinology, Diabetes & Metabolism | DX: E04.9 Nontoxic goiter, unspecified (principal) | CPT/HCPCS: 76536 ==

== ENCOUNTER → 2024-01-16 09:16 | Outpatient (REF) | payer BC, OTHER, SELFPAY ==
[2024-01-16 09:30] VITALS: BP 137/70; BP_SYST 73
== END ==
LOC: RADI 09:16
PROVIDERS: ATTENDING PHYSICIAN Internal Medicine Endocrinology, Diabetes & Metabolism; FAMILY PHYSICIAN Family Medicine
DX: E04.2 Nontoxic multinodular goiter (principal)
CPT/HCPCS: 88173; 10005; 10006

== ENCOUNTER 2024-03-29 20:21 | Inpatient (IN) | payer BC, OTHER, SELFPAY ==
[2024-03-29] VITALS (9 sets, daily range): BP systolic 90–172; BP diastolic 57–92; BMI 46.4; BMI 45.4
[2024-03-29] MEDS: TYLENOL 1000 MG PO (17:28)
[2024-03-29 17:44] LABS: % Basophils 0.2 % (0-2); % Eosinophils 0.3 % (0-6); % Immature Granulocytes 0.6 % (0-0.5); % Lymphocytes 3.7 % (20.5-51.1); % Monocytes 6.7 % (1.7-9.3); % Neutrophils 88.5 % (42.2-75.2); Absolute Eosinophils 0.1 10^3/uL (0-0.7); Absolute Immature Granulocytes 0.1 10^3/uL (0-0.05); Absolute Lymphocytes 0.7 10^3/uL (1.2-3.4); Absolute Monocytes 1.2 10^3/uL (0.1-0.6); Absolute Neutrophils 15.8 10^3/uL (1.4-6.5); Hematocrit 39.4 % (39.0-52.0); Hemoglobin 13.2 g/dL (13.0-18.0); Mean Corp Hgb Conc. 33.5 g/dL (33.0-37.0); Mean Corpuscular Hgb 28.3 pg (27.0-31.0); Mean Corpuscular Volume 84.4 fL (80.0-94.0); Mean Platelet Volume 10.5 fL (7.4-10.4); Nucleated Red Blood Cells % 0 % (-); Platelet Count 161 10^3/uL (130-400); Red Blood Cell Count 4.67 10^6/uL (4.70-6.10); Red Cell Dist. Width 16.3 % (11.5-14.5); White Blood Cell Count 17.9 10^3/uL (4.8-10.8)
[2024-03-29 17:45] LABS: Urine Albumin 3+ (Neg - Trace); Urine Bilirubin Negative (Negative); Urine Character Clear (Clear); Urine Color Yellow; Urine Glucose Negative (Negative); Urine Ketone Negative (Negative); Urine Leukocyte 3+ (Negative); Urine Nitrite Negative (Negative); Urine Occult Blood 4+ (Negative); Urine Specific Gravity 1.005 (<1.030); Urine Urobilinogen Negative (Neg - 1+)
[2024-03-29 18:02] LABS: COVID-19 Antigen Negative (Negative)
[2024-03-29 18:09] LABS: ALT (SGPT) 22 U/L (0-50); AST (SGOT) 27 U/L (17-59); Albumin 3.4 g/dl (3.5-5.0); Alkaline Phosphatase 97 U/L (38-126); Blood Urea Nitrogen 41 mg/dl (9-20); Calcium 8.7 mg/dl (8.4-10.2); Carbon Dioxide 14 mmol/L (22-30); Chloride 105 mmol/L (98-107); Estimated Creatinine Clearance 41 ml/min; Glucose 178 mg/dl (70-99); Potassium 3.8 mmol/L (3.5-5.1); Sodium 132 mmol/L (135-145); Total Bilirubin 1.5 mg/dl (0.2-1.3); Total Protein 6.3 g/dl (6.3-8.2); eGFR 26.96
[2024-03-29 18:13] LABS: Lactic Acid 1.6 mmol/L (0.7-2.0)
[2024-03-29 18:30] LABS: Urine Bacteria Many (Negative); Urine Red Blood Cell 0-2 /HPF (0-2); Urine Squamous Cell 0-2 /LPF (Few); Urine White Cell 60-70 /HPF (0-5)
--- NOTE | 2024-03-29 18:40 | ED.GENMED ---
History of Present Illness
<Quirino Sullivan PA-C - Last Filed: 03/29/24 19:52>
General
Chief Complaint: Male Genito-Urinary Symptoms
Time Seen by Provider: 03/29/24 17:18
History of Present Illness
History of Present Illness:
68-year-old male presents to the emergency department for evaluation of right flank pain occurring intermittently for the past 2 weeks associated with dark and foul-smelling urine. He has a history of obstructing kidney stones and urosepsis
requiring ureteral stents and states he feels similar. Fever began today. No nausea or vomiting. Currently denies any pain at this current time
Past History
<Quirino Sullivan PA-C - Last Filed: 03/29/24 19:52>
Past History
ED Past Medical History: CAD, CVA, Hypercholesterolemia, Other and Other
ED Past Surgical History: Orthopedic
Social History
Tobacco: Non-smoker
Alcohol: None
Personal:
Living: with family
Family History
Family History: Other
Review of Systems
<Quirino Sullivan PA-C - Last Filed: 03/29/24 19:52>
Review of Systems
Allergies reviewed?: Yes
All Other Systems: ROS reviewed and negative except as documented in HPI and ROS
Phy Exam
<Quirino Sullivan PA-C - Last Filed: 03/29/24 19:52>
Physical Exam
Physical Exam:
GEN: Well appearing, NAD, WDWN
HEENT: Oral mucosa moist, no scleral icterus
Cardiac: Tachycardic, regular
Lung: No respiratory distress, no tachypnea, lungs clear to auscultation bilaterally
Abdomen: Morbid obesity limits exam, no gross tenderness
MSK: No gross deformity or injuries
Skin: Good color, no pallor or jaundice, no rashes
Neuro: AO x3, moves all extremities freely
Psych: Calm, cooperative
Sepsis
<Quirino Sullivan PA-C - Last Filed: 03/29/24 19:52>
Sepsis Screening
Sepsis Assessment: Severe Sepsis
Sepsis Screening: ARF-Creatinine >2.0
Sepsis Screen
Sepsis Screen: Severe Sepsis
Date: 03/29/24
Time: 17:35
Course
<Quirino Sullivan PA-C - Last Filed: 03/29/24 19:52>
Orders/Labs/Results
Orders:
Orders
03/29/24 17:19
Acetaminophen [Tylenol] 1,000 mg .ROUTE .STK-MED ONE
03/29/24 17:27
Acetaminophen [Tylenol] 1,000 mg PO NOW STA
03/29/24 17:31
0.9% Sodium Chloride 1000 ml [Nss] 1,000 ml IV BOLUS
03/29/24 17:32
CT Abd/pel Without Iv Or Oral Urgent
Comment:
Reason For Exam: R flank pain/fever
03/29/24 17:35
Comprehensive Metabolic Panel Urgent
Blood Culture Q30M
CINDY Source: Blood/Venous
Specimen Description:
03/29/24 17:36
COVID-19 Antigen Urgent
Source: Nasal Swab
Complete Blood Count/With Diff Urgent
Lactic Acid Q4H
Comment: CANCEL 2nd LACTIC ACID IF 1st LACTIC ACID IS LESS THAN 2
Urinalysis Reflex To Culture Urgent
Date Specimen was Collected: 03/29/24
Time Specimen was Collected: 17:34
Urine Microscopic Reflex Cult Urgent
Influenza A+B Rapid Molecular Urgent
CINDY Source: Nasal Swab
Specimen Description:
Urine Culture Urgent
CINDY Source: U
Specimen Description:
Date Specimen was Collected: 03/29/24
Time Specimen was Collected: 17:34
03/29/24 17:51
Blood Culture Q30M
CINDY Source: Blood/Venous
Specimen Description:
03/29/24 18:14
Gentamicin Sulfate [Gentamicin] 200 mg 0.9% Sodium Chloride [Nss] 50 ml IV NOW
03/29/24 19:15
Lactated Ringers [Lr] 1,000 ml IV BOLUS
03/29/24 19:31
Piperacillin/Tazo 4.5 Gram [Zosyn] 4.5 gram in 100 ml IV NOW
03/29/24 21:45
Lactic Acid Q4H
Comment: CANCEL 2nd LACTIC ACID IF 1st LACTIC ACID IS LESS THAN 2
Abnormal Lab Results
03/29/24 03/29/24
17:35 17:36
WBC 17.9 H 10^3/uL
(4.8-10.8)
RBC 4.67 L 10^6/uL
(4.70-6.10)
RDW 16.3 H %
(11.5-14.5)
MPV 10.5 H fL
(7.4-10.4)
Abs Immat Gran (auto) 0.1 H 10^3/uL
(0-0.05)
Absolute Neuts (auto) 15.8 H 10^3/uL
(1.4-6.5)
Absolute Lymphs (auto) 0.7 L 10^3/uL
(1.2-3.4)
Absolute Monos (auto) 1.2 H 10^3/uL
(0.1-0.6)
Immature Gran % 0.6 H %
(0-0.5)
Neutrophils % 88.5 H %
(42.2-75.2)
Lymphocytes % 3.7 L %
(20.5-51.1)
Sodium 132 L mmol/L
(135-145)
Carbon Dioxide 14 L* mmol/L
(22-30)
BUN 41 H mg/dl
(9-20)
Creatinine 2.5 H mg/dL
(0.7-1.3)
Glucose 178 H mg/dl
(70-99)
Total Bilirubin 1.5 H mg/dl
(0.2-1.3)
Albumin 3.4 L g/dl
(3.5-5.0)
Ur Occult Blood Reflex 4+ A
(Negative)
Leukocyte Esterase Rfl 3+ A
(Negative)
Urine WBC (Reflex) 60-70 A /HPF
(0-5)
Urine Bacteria (Reflex) Many A
(Negative)
Urine Albumin (Reflex) 3+ A
(Neg - Trace)
03/29/24 17:36
03/29/24 17:35
Vital Signs
Initial and Last Documented VS:
Initial Vital Signs
Pulse Resp BP Pulse Ox
107 27 122/69 95
03/29/24 17:09 03/29/24 17:09 03/29/24 17:09 03/29/24 17:09
Last Documented Vital Signs
Temp Pulse Resp BP Pulse Ox
102.5 F H 94 25 95/60 93
03/29/24 17:11 03/29/24 18:30 03/29/24 18:30 03/29/24 18:00 03/29/24 18:30
<Mk Henson, DO - Last Filed: 03/29/24 19:41>
Orders/Labs/Results
Orders:
Orders
03/29/24 17:19
Acetaminophen [Tylenol] 1,000 mg .ROUTE .STK-MED ONE
03/29/24 17:27
Acetaminophen [Tylenol] 1,000 mg PO NOW STA
03/29/24 17:31
0.9% Sodium Chloride 1000 ml [Nss] 1,000 ml IV BOLUS
03/29/24 17:32
CT Abd/pel Without Iv Or Oral Urgent
Comment:
Reason For Exam: R flank pain/fever
03/29/24 17:35
Comprehensive Metabolic Panel Urgent
Blood Culture Q30M
CINDY Source: Blood/Venous
Specimen Description:
03/29/24 17:36
COVID-19 Antigen Urgent
Source: Nasal Swab
Complete Blood Count/With Diff Urgent
Lactic Acid Q4H
Comment: CANCEL 2nd LACTIC ACID IF 1st LACTIC ACID IS LESS THAN 2
Urinalysis Reflex To Culture Urgent
Date Specimen was Collected: 03/29/24
Time Specimen was Collected: 17:34
Urine Microscopic Reflex Cult Urgent
Influenza A+B Rapid Molecular Urgent
CINDY Source: Nasal Swab
Specimen Description:
Urine Culture Urgent
CINDY Source: U
Specimen Description:
Date Specimen was Collected: 03/29/24
Time Specimen was Collected: 17:34
03/29/24 17:51
Blood Culture Q30M
CINDY Source: Blood/Venous
Specimen Description:
03/29/24 18:14
Gentamicin Sulfate [Gentamicin] 200 mg 0.9% Sodium Chloride [Nss] 50 ml IV NOW
03/29/24 19:15
Lactated Ringers [Lr] 1,000 ml IV BOLUS
03/29/24 19:31
Piperacillin/Tazo 4.5 Gram [Zosyn] 4.5 gram in 100 ml IV NOW
03/29/24 21:45
Lactic Acid Q4H
Comment: CANCEL 2nd LACTIC ACID IF 1st LACTIC ACID IS LESS THAN 2
Abnormal Lab Results
03/29/24 03/29/24
17:35 17:36
WBC 17.9 H 10^3/uL
(4.8-10.8)
RBC 4.67 L 10^6/uL
(4.70-6.10)
RDW 16.3 H %
(11.5-14.5)
MPV 10.5 H fL
(7.4-10.4)
Abs Immat Gran (auto) 0.1 H 10^3/uL
(0-0.05)
Absolute Neuts (auto) 15.8 H 10^3/uL
(1.4-6.5)
Absolute Lymphs (auto) 0.7 L 10^3/uL
(1.2-3.4)
Absolute Monos (auto) 1.2 H 10^3/uL
(0.1-0.6)
Immature Gran % 0.6 H %
(0-0.5)
Neutrophils % 88.5 H %
(42.2-75.2)
Lymphocytes % 3.7 L %
(20.5-51.1)
Sodium 132 L mmol/L
(135-145)
Carbon Dioxide 14 L* mmol/L
(22-30)
BUN 41 H mg/dl
(9-20)
Creatinine 2.5 H mg/dL
(0.7-1.3)
Glucose 178 H mg/dl
(70-99)
Total Bilirubin 1.5 H mg/dl
(0.2-1.3)
Albumin 3.4 L g/dl
(3.5-5.0)
Ur Occult Blood Reflex 4+ A
(Negative)
Leukocyte Esterase Rfl 3+ A
(Negative)
Urine WBC (Reflex) 60-70 A /HPF
(0-5)
Urine Bacteria (Reflex) Many A
(Negative)
Urine Albumin (Reflex) 3+ A
(Neg - Trace)
03/29/24 17:36
03/29/24 17:35
Vital Signs
Initial and Last Documented VS:
Initial Vital Signs
Pulse Resp BP Pulse Ox
107 27 122/69 95
03/29/24 17:09 03/29/24 17:09 03/29/24 17:09 03/29/24 17:09
Last Documented Vital Signs
Temp Pulse Resp BP Pulse Ox
102.5 F H 94 25 95/60 93
03/29/24 17:11 03/29/24 18:30 03/29/24 18:30 03/29/24 18:00 03/29/24 18:30
<Quirino Sullivan PA-C - Last Filed: 03/29/24 19:52>
MDM/Problems Addressed
MDM/Problems Addressed:
Found to have large obstructing proximal ureteral stone, he is septic with leukocytosis and an AJ, at this time is stable, case reviewed with urology and will plan for operative intervention in the morning unless the patient becomes unstable
overnight
<Quirino Sullivan PA-C - Last Filed: 03/29/24 19:52>
*Critical Care Note
Total Time (30-74mins, 75-104mins- exclusive of procedures): 40 minutes
comment:
Critical care time: 40 min
Critical care time was exclusive of: Separately billable procedures, treating other patients, and teaching time
Critical care was necessary to treat or prevent imminent or life-threatening deterioration of the following conditions: urosepsis
Critical care time spent personally by me on the following activities:
[x] Review of old charts
[x] Obtaining history from patient or surrogate
[x] Ordering and review of the laboratory studies
[x] Ordering and review of radiographic studies
[x] Ordering and performing treatments and interventions
[x] Patient patient's response to treatment
[x] Development of treatment plan with patient or surrogate
<Quirino Sullivan PA-C - Last Filed: 03/29/24 19:52>
Update Note
Update Note:
Case discussed with urology Dr. Mcneil, at this time patient appears clinically stable close will plan for operative intervention in the morning. Will recommend keeping n.p.o. at midnight, broad-spectrum IV antibiotics initiated. Will admit to the
hospitalist service
ED Attending Note
<Quirino Sullivan PA-C - Last Filed: 03/29/24 19:52>
-
Portions of this chart may have been created with voice recognition software.� Occasional wrong word or��sound alike� substitutions may have occurred due to the inherent limitations of voice recognition software.
<Mk Henson DO - Last Filed: 03/29/24 19:41>
ED Attending Note
Patient seen and examined by attending physician: Yes
I performed the substantive portion of visit, reviewed & personally made and approve the management plan that is documented in note by myself or BRANDIN.: Yes
ED Attending Note:
seen aleksandra Charles agree with a/p, complicated uti, stone, ivf, antibiotics urology eval
Discharge Plan
Departure
Patient Disposition: Admit
Date of Disposition: 03/29/24
Time of Disposition: 19:34
Admit to: IMU
Presentation/result/management discussed w/ accepting MD/DO: Hospitalist
Discharge Problem:
Urinary tract infection, Calculus, ureteral, Severe sepsis
Prescriptions:
No Action
paroxetine HCl 20 MG tablet
20 mg PO DAILY
propranolol 10 MG tablet
20 mg PO BID
furosemide [Lasix] 20 MG tablet
40 mg PO DAILY
atorvastatin 80 mg Tablet
80 mg PO QPM
ascorbic acid (vitamin C) [Vitamin C] 1,000 mg Tablet
1,000 mg PO DAILY
clopidogrel [Plavix] 75 mg Tablet
75 mg PO DAILY
cholecalciferol (vitamin D3) [Vitamin D3] 125 mcg (5,000 unit) Tablet
125 mcg PO DAILY
Orencia 125 mg/mL Syringe
125 mg SC MO
Mounjaro 7.5 mg/0.5 mL Pen Injector
10 mg SC GARCIA
insulin aspart U-100 [Novolog FlexPen U-100 Insulin] 100 unit/mL (3 mL) insulin pen
8 unit SC TID
Rx Instructions:
new dose
insulin degludec [Tresiba FlexTouch U-100] 100 unit/mL (3 mL) Insulin Pen
20 unit SC DAILY Qty: 0
Rx Instructions:
new dose
multivitamin Tablet
1 tab PO DAILY
losartan 50 mg Tablet
50 mg PO BID
nifedipine [Nifediac CC] 60 mg Tablet Extended Release
60 mg PO DAILY
ferrous sulfate 325 mg (65 mg iron) Tablet
325 mg PO DAILY
Referrals:
Anabel Bonilla DO [Family Provider] -
Interventions
Interventions:
*Risk Screen - Suicide Last Done: 03/29/24 17:11
*General Assessment Last Done: 03/29/24 17:11
*Neglect/Abuse Screening Last Done: 03/29/24 17:11
*ED COVID-19 Vaccine History Last Done: 03/29/24 17:17
ED-Male Genitourinary Assessment Last Done: 03/29/24 18:54
Discharge Date and Time
Print Language: PORTUGUESE
[2024-03-29] MEDS: LR 1000 IV (19:29)
[2024-03-29] MEDS: NSS 1000 IV ×2 (19:29→23:12)
[2024-03-29] MEDS: ZOSYN 100 IV (19:38)
--- NOTE | 2024-03-29 19:56 | HPS.HSE ---
Family Physician
-
Family Physician: Anabel Bonilla
Chief Complaint
-
urinary symptoms
History of Present Illness
68-year-old male past medical history of nephrolithiasis, CKD 3, type 2 diabetes, CAD, obesity, anxiety/depression, hyperlipidemia, obstructive sleep apnea, rheumatoid arthritis, presenting with burning with urination and incontinence over the past
2 to 3 days. He had fevers and chills today. He did have some pain in his right flank but this has improved. Did have some blood in the urine which is improved. Denies abdominal pain. He has had decreased appetite and nausea but denies
vomiting. Denies diarrhea.
Denies chest pain or shortness of breath.
Smoking or alcohol use.
Medical History
Past Medical History
Past Medical History: Reports Other (nephrolithiasis, CKD 3, type 2 diabetes, CAD, obesity, anxiety/depression, hyperlipidemia, obstructive sleep apnea, rheumatoid arthritis)
Past Surgical History: Reports Other (Orthopedic)
Social History
Tobacco: Non-smoker
Alcohol: None
Drug: None
Family History
Family History: Not pertinent
Allergies / Home Medications
Allergies reflects when Allergies were last updated in [facility].
Home Medications with original date entered in [facility]
Allergy/Medication List:
Allergies
Allergy/AdvReac Type Severity Reaction Status Date / Time
latex Allergy Rash Verified 03/29/24 17:11
Home Medications
paroxetine HCl 20 mg tablet 20 mg PO DAILY anxiety 02/03/12
propranolol 10 mg tablet 20 mg PO BID Blood Pressure 03/05/16
furosemide 20 mg tablet (Lasix) 40 mg PO DAILY Fluid Retention/Swelling 01/04/18
abatacept 125 mg/mL subcutaneous syringe (Orencia) 125 mg SC MO Autoimmune Disorder 06/11/22
ascorbic acid (vitamin C) 1,000 mg tablet (Vitamin C) 1,000 mg PO DAILY Supplement 06/11/22
atorvastatin 80 mg tablet 80 mg PO QPM High Cholesterol 06/11/22
cholecalciferol (vitamin D3) 125 mcg (5,000 unit) tablet (Vitamin D3) 125 mcg PO DAILY Supplement 06/11/22
clopidogrel 75 mg tablet (Plavix) 75 mg PO DAILY Blood Clot Prevention/Tx 06/11/22
insulin aspart U-100 100 unit/mL (3 mL) subcutaneous pen (Novolog FlexPen U-100 Insulin aspart) 8 unit SC TID DIABETES 05/20/23
insulin degludec 100 unit/mL (3 mL) subcutaneous pen (Tresiba FlexTouch U-100 insulin) 20 unit SC DAILY diabetes ##0 05/20/23
tirzepatide 7.5 mg/0.5 mL subcutaneous pen injector (Mounjaro) 10 mg SC GARCIA Diabetes 05/20/23
multivitamin 1 tab PO DAILY 06/01/23
ferrous sulfate 325 mg (65 mg iron) tablet 325 mg PO DAILY 03/29/24
losartan 50 mg tablet 50 mg PO BID 03/29/24
nifedipine 60 mg tablet,extended release 60 mg PO DAILY 03/29/24
Review of Systems
-
History Source: Patient
A 12 point ROS was completed and negative except as noted: Yes
Constitutional: Reports No Symptoms
EENT: Reports No Symptoms
Respiratory: Reports No Symptoms
Cardiac: Reports No Symptoms
Abdomen/GI: Reports No Symptoms
: Reports See HPI
Musculoskeletal: Reports No Symptoms
Skin: Reports No Symptoms
Neurological: Reports No Symptoms
Endocrine: Reports No Symptoms
Hematologic/Lymphatic: Reports No Symptoms
Psych: Reports No Symptoms
Physical Exam
Vital Signs
Vital Signs
Temp Pulse Resp BP Pulse Ox
102.5 F H 94 25 95/60 93
03/29/24 17:11 03/29/24 18:30 03/29/24 18:30 03/29/24 18:00 03/29/24 18:30
Physical Exam
General: Well Developed, Well Nourished and No Apparent Distress
HEENT: NormoCephalic, Moist mucous membranes and Atraumatic
Respiratory: Clear
Cardiac: S1/S2 and Regular Rhythm; No Murmur or Rub
GI: Soft, Non Tender, Non Distended and Normal Bowel Sounds; No Organomegaly
Rectal: Deferred by Provider
Musculoskeletal: No Clubbing, No Cyanosis and No Edema
Skin: No Rash
Neuro: Nonfocal/grossly intact
Laboratory Results
-
03/29/24 17:36
03/29/24 17:35
Laboratory Results
Lactic Acid 1.6 mmol/L (0.7-2.0) 03/29/24 17:36
Total Bilirubin 1.5 mg/dl (0.2-1.3) H 03/29/24 17:35
AST 27 U/L (17-59) 03/29/24 17:35
ALT 22 U/L (0-50) 03/29/24 17:35
Alkaline Phosphatase 97 U/L (38-126) 03/29/24 17:35
Data Reviewed
-
Lab Data: Labs Reviewed by me
Old Records: Reviewed
Impression/Plan
-
IMPRESSION:
PLAN:
# Sepsis (leukocytosis, fever, tachypnea, hypotension) secondary to obstructive uropathy
-CT abdomen pelvis shows large calculus in the central aspect of the right and left renal collecting systems without significant hydronephrosis
-N.p.o.
-IV fluids
-Cefepime
-Gentamicin given
-Urology consulted and planning for OR in the morning unless patient becomes unstable
-Blood pressure 90s currently patient appears well
# AJ on CKD 3
# Anion gap metabolic acidosis
-Monitor with IV fluids
-Hold Lasix
-Hold losartan
Type 2 diabetes
-Continue Tresiba decreased to 10 units
-Insulin sliding scale
CAD with stent in distant past
-Continue statin
-Hold Plavix
Obesity
Anxiety/depression
-Continue paroxetine
Hyperlipidemia
Essential hypertension
-Hold nifedipine, propranolol due to hypotension
Obstructive sleep apnea
Rheumatoid arthritis
-Continue Orencia
Chronic anemia
-Hemoglobin 10
-Continue iron supplement
Full code
DVT prophylaxis�SCDs
N.p.o.
[2024-03-29] MEDS: TYLENOL 650 MG PO (21:41)
[2024-03-29] MEDS: STERILE WATER FOR INJECTION 10 ML IV (23:11)
[2024-03-29] MEDS: MAXIPIME 1000 MG IV (23:11)
[2024-03-30] VITALS (17 sets, daily range): BP systolic 88–172; BP diastolic 52–82
[2024-03-30 00:06] LABS: Glucose - Point of Care 144 mg/dl (70-99)
[2024-03-30] MEDS: TYLENOL 650 MG PO ×2 (04:35→20:16)
[2024-03-30 04:49] LABS: % Basophils 0.3 % (0-2); % Immature Granulocytes 0.7 % (0-0.5); % Lymphocytes 4.6 % (20.5-51.1); % Monocytes 6.5 % (1.7-9.3); % Neutrophils 87.9 % (42.2-75.2); Absolute Basophils 0.1 10^3/uL (0-0.2); Absolute Immature Granulocytes 0.2 10^3/uL (0-0.05); Absolute Monocytes 1.4 10^3/uL (0.1-0.6); Absolute Neutrophils 18.9 10^3/uL (1.4-6.5); Hematocrit 38.6 % (39.0-52.0); Hemoglobin 12.8 g/dL (13.0-18.0); Mean Corp Hgb Conc. 33.2 g/dL (33.0-37.0); Mean Corpuscular Hgb 28.4 pg (27.0-31.0); Mean Corpuscular Volume 85.8 fL (80.0-94.0); Mean Platelet Volume 10.2 fL (7.4-10.4); Nucleated Red Blood Cells % 0 % (-); Platelet Count 155 10^3/uL (130-400); Red Cell Dist. Width 16.6 % (11.5-14.5); White Blood Cell Count 21.5 10^3/uL (4.8-10.8)
[2024-03-30 05:05] LABS: ALT (SGPT) 24 U/L (0-50); AST (SGOT) 36 U/L (17-59); Albumin 3.3 g/dl (3.5-5.0); Alkaline Phosphatase 94 U/L (38-126); Blood Urea Nitrogen 41 mg/dl (9-20); Calcium 8.5 mg/dl (8.4-10.2); Carbon Dioxide 17 mmol/L (22-30); Chloride 108 mmol/L (98-107); Estimated Creatinine Clearance 42 ml/min; Glucose 130 mg/dl (70-99); Potassium 3.8 mmol/L (3.5-5.1); Sodium 137 mmol/L (135-145); Total Bilirubin 1.7 mg/dl (0.2-1.3); Total Protein 6.1 g/dl (6.3-8.2); eGFR 28.32
--- NOTE | 2024-03-30 06:13 | W.SUR.PREOP ---
Pre-Operative Surgical Note
-
I have examined this patient prior to the performance of the scheduled procedure.
The patient's condition is unchanged from the time of the current History and
Physical and the patient is able to undergo the scheduled procedure.
Presenting w/ fevers, chills, hematuria, dysuria, and right flank pain.
Clinical picture c/w urosepsis from cUTI and AJ - no clear radiographic evidence of obstructive uropathy.
UA => +WBCs/bacteria
WBC 21.5
Cr 2.4
CTAP w/o IV contrast => 1.4 and 1.9 cm stones in bilateral renal pelves w/o overt hydronephrosis noted.
Risks, benefits, alternatives, and potential complications of stent placement reviewed - including but not limited to urosepsis/bacteremia, bleeding, ureteral/bladder injury, need for additional emergent procedures/surgeries.
- NPO
- Hold Plavix
- To OR this AM urgently for cystoscopy + bilateral ureteral stent placement
- If stent placement not feasible, patient will require PCN placement by IR
- IV antibiotics and IVF resuscitation
D/w Hospitalist.
--- NOTE | 2024-03-30 06:15 | CONS.URO ---
Consultation
-
Date/Time Consultation Requested: 03/30/24
Date/Time Consultation Performed: 03/30/24
Requesting Provider: Hospitalist
Performing Provider: Tarun
Reason for Consultation: urosepsis, bilateral renal pelvis stones, AJ
Medical History
History of Present Illness
68M w/ h/o urosepsis and obstructing ureteral stones s/p stent placement followed by URS/LL/stone extraction/stent placement in 05/2023.
Presents to ED w/ dysuria, incontinence x2-3 days in addition to fevers/chills.
Noted right flank pain which improved.
Noted blood in urine which improved.
Past Medical History
Past Medical History: CAD, NIDDM, Renal Failure and Other (nephrolithiasis, CKD 3, obesity, anxiety/depression, NEIL, RA)
Past Surgical History: Orthopedic and Urological (ureteroscopy/laser lithotripsy/stone extraction/stent placement)
Social History
Tobacco: Non-smoker
Alcohol: None
Drug: None
Personal:
Living: With Family
Employment: Retired
Family History
Family History: Reviewed & Not Pertinent
Allergies/Home Medications
Allergies
Allergy/AdvReac Type Severity Reaction Status Date / Time
latex Allergy Rash Verified 03/29/24 17:11
Home Medications
�Medication �Instructions �Recorded �Confirmed �Type
paroxetine HCl 20 mg tablet 20 mg PO DAILY anxiety 02/03/12 03/29/24 History
propranolol 10 mg tablet 20 mg PO BID Blood Pressure 03/05/16 03/29/24 History
furosemide 20 mg tablet (Lasix) 40 mg PO DAILY Fluid 01/04/18 03/29/24 History
Retention/Swelling
abatacept 125 mg/mL subcutaneous 125 mg SC MO Autoimmune Disorder 06/11/22 03/29/24 History
syringe (Orencia)
ascorbic acid (vitamin C) 1,000 mg 1,000 mg PO DAILY Supplement 06/11/22 03/29/24 History
tablet (Vitamin C)
atorvastatin 80 mg tablet 80 mg PO QPM High Cholesterol 06/11/22 03/29/24 History
cholecalciferol (vitamin D3) 125 125 mcg PO DAILY Supplement 06/11/22 03/29/24 History
mcg (5,000 unit) tablet (Vitamin
D3)
clopidogrel 75 mg tablet (Plavix) 75 mg PO DAILY Blood Clot 06/11/22 03/29/24 History
Prevention/Tx
insulin aspart U-100 100 unit/mL 8 unit SC TID DIABETES 05/20/23 03/29/24 History
(3 mL) subcutaneous pen (Novolog
FlexPen U-100 Insulin aspart)
insulin degludec 100 unit/mL (3 20 unit SC DAILY diabetes ##0 05/20/23 03/29/24 History
mL) subcutaneous pen (Tresiba
FlexTouch U-100 insulin)
tirzepatide 7.5 mg/0.5 mL 10 mg SC GARCIA Diabetes 05/20/23 03/29/24 History
subcutaneous pen injector
(Mounjaro)
multivitamin 1 tab PO DAILY 06/01/23 03/29/24 History
ferrous sulfate 325 mg (65 mg 325 mg PO DAILY 03/29/24 03/29/24 History
iron) tablet
losartan 50 mg tablet 50 mg PO BID 03/29/24 03/29/24 History
nifedipine 60 mg tablet,extended 60 mg PO DAILY 03/29/24 03/29/24 History
release
Review of Systems
-
History Source: Patient
A 12 point Review of Systems was completed except as noted: Yes
Physical Exam
Vital Signs
Vital Signs
Temp Pulse Resp BP Pulse Ox
100.4 F H 94 17 120/60 95
03/30/24 04:30 03/30/24 06:00 03/30/24 06:00 03/30/24 06:00 03/30/24 06:00
Lab / Testing Results
Laboratory Results
03/30/24 04:29
03/30/24 04:29
Physical Exam
General: Well Developed, Well Nourished and Fever
HEENT: Normocephalic and Anicteric
Respiratory: Non Labored Respirations
Cardiac: Regular Rhythm
Breast: N/A
GI: Soft, Non Tender, Non Distended and Other (obese)
Rectal: Deferred by Provider
Musculoskeletal: Edema
Neuro: AO x 3, No Motor Deficits and Nonfocal/Grossly Intact
Hematologic/Lymphatic: No Lymphadenopathy
Psych: Calm and Intact Judgement
Assessment / Plan
-
Urosepsis
cUTI
Bilateral large volume UPJ stones w/o hydronephrosis
AJ on CKD 3
Febrile
SBPs soft - responsive to IVF w/o pressor requirement currently
WBC 21.5
[address] imaging/report reviewed
Given prior h/o distal stone migration and obstructive uropathy w/ urosepsis, urgent stent placement for decompression of the bilateral renal collecting systems advised.
Will require staged intervention in coming weeks to address bilateral renal stone burden.
- NPO
- To OR this AM for cystoscopy + bilateral stent placement
- IV Maxipime (per Hospitalist)
D/w patient at bedside.
D/w Hospitalist.
D/w RN.
Data Reviewed
-
Total Time Spent with Patient (in minutes): 45
CT Scan: Image personally visualized and interpreted, Report Reviewed by Me, Discussed with Nurse and Discussed with Patient
Lab Data: Labs Reviewed, Discussed with Physician and Discussed with Patient
Old Records: Reviewed
[2024-03-30] MEDS: NSS 1000 IV ×2 (06:29→18:23)
--- NOTE | 2024-03-30 08:07 | PTCARENOTE ---
Patient transported patient to OR on stretcher.
--- NOTE | 2024-03-30 08:43 | W.IMMPOSTOP ---
Surgical Immed Post Op Note
-
Primary Surgeon: Tarun
Pre-op Diagnosis: Urosepsis, AJ on CKD, bilateral large volume (>1.0 cm) UPJ stones.
Post-op Diagnosis: Same
Procedure Performed: cystoscopy + bilateral ureteral stent insertion
Anesthesia Type: LMA
Specimen / Cultures: None/None
Estimated Blood Loss: Negligible
Drains:
1. Bilateral 6Fr x 26 cm JJ ureteral stents
2. 18Fr silicone catheter (latex allergy)
Complications: None
Operative Findings: Significant cystitis and inflammatory changes of bladder c/w UTI, radiopaque bilateral UPJ stones noted on KUB, bilateral stents in appropriate position on cysto/KUB.
[2024-03-30 08:45] LABS: Glucose - Point of Care 120 mg/dl (70-99)
--- NOTE | 2024-03-30 09:49 | W.PN.UPDATE ---
Addendum entered and electronically signed by Polo Mcneil MD 03/30/24 10:17:
Given recent CT imaging (Abdomen/Pelvis), will defer to Hospitalist if US Abdomen scheduled this week (outpatient) is still required.
Original Note:
Update Note
Progress Note Update
s/p bilateral ureteral stent insertion w/o difficulty.
18Fr catheter placed to facilitate urine drainage given urosepsis and AJ.
Spouse updated post-op via telephone.
- patient seen in office 02/27/24 to review 24 hr urine studies - indicative of elevated urine Ca/oxalate/uric acid
- Outpatient Nephrology evaluation advised - not yet scheduled by patient (per spouse)
- Will need close Nephrology F/U on discharge (previously saw Dr. Mtz for CKD)
- Tentatively scheduled for US Abdomen on 04/01 as outpatient - will defer to Hospitalist if US can be completed inpatient
D/w spouse.
--- NOTE | 2024-03-30 10:15 | PTCARENOTE ---
Received patient from PACU. Patient AAOX3. 18FR. latex free santos catheter draining clear yellow urine. VS stable,afebrile. Patient denies any pain or discomfort. Will continue to monitor.
[2024-03-30] MEDS: MAXIPIME 1000 MG IV ×2 (10:53→21:53)
[2024-03-30] MEDS: VITAMIN D3 (cholecalciferol) 125 MCG PO (10:53)
[2024-03-30] MEDS: STERILE WATER FOR INJECTION 10 ML IV ×2 (10:53→21:53)
[2024-03-30] MEDS: PAXIL 20 MG PO (10:54)
[2024-03-30] MEDS: THERAGRAN 1 TABLET PO (10:54)
[2024-03-30] MEDS: FEOSOL 325 MG PO (10:54)
[2024-03-30] MEDS: VITAMIN C 1000 MG PO (10:54)
--- NOTE | 2024-03-30 11:13 | W.PN.HOSP.TC ---
Today's Communication/Plan
-
continue IVF
MRSA swab
add Vanco pending MRSA and Cx
Assessment / Plan
Assessment / Plan
# Sepsis (leukocytosis, fever, tachypnea, hypotension) secondary to obstructive uropathy
-CT abdomen pelvis shows large calculus in the central aspect of the right and left renal collecting systems without significant hydronephrosis
-N.p.o. prior to procedure, diet has been ordered
-IV fluids
-Cefepime
pending cx results and MRSA, will add Vanco with pharmacy to dose
-Gentamicin given
-Urology consulted underwent cysto and bilateral ureteral stenting
-Blood pressure 129/66
Propranolol, Nifedipine, losartan on hold
will resume Propranolol and Nifedipine cautiously with hold parameters
# AJ on CKD 3
# Anion gap metabolic acidosis
-Monitor with IV fluids
-Hold Lasix
-Hold losartan
BUN/Creat 41/2.5-->41/2.4
continue IVF with NS
Type 2 diabetes
-Continue Tresiba decreased to 10 units
-Insulin sliding scale
CAD with stent in distant past
-Continue statin
-Hold Plavix
Obesity
Anxiety/depression
-Continue paroxetine
Hyperlipidemia
Essential hypertension
-Hold nifedipine, propranolol due to hypotension - see above
Obstructive sleep apnea
Rheumatoid arthritis
-Continue Orencia
Chronic anemia
-Hemoglobin 10
-hold Fe supplement with pt nonambulatory to avoid excessive constipation
Full code
DVT prophylaxis�SCDs
.
Anticipated Discharge: 24 - 48 hours
Subjective/Interval History
-
Date of Service: March 30, 2024
Awake, alert, just back from cystoscopy with bilateral ureteral stent insertion
Objective Data
-
Labs:
Laboratory Results
03/30/24
04:29
WBC 21.5 H
Hgb 12.8 L
Hct 38.6 L
Plt Count 155
Sodium 137
Potassium 3.8
Chloride 108 H
Carbon Dioxide 17 L
BUN 41 H
Creatinine 2.4 H
Glucose 130 H
Calcium 8.5
Total Bilirubin 1.7 H
AST 36
ALT 24
Alkaline Phosphatase 94
Vital Signs:
Vital Signs
Temp Pulse Resp BP Pulse Ox
97.5 F 81 21 129/66 97
03/30/24 10:15 03/30/24 10:00 03/30/24 10:00 03/30/24 10:00 03/30/24 10:57
I&O
03/29/24 03/30/24 03/31/24
06:59 06:59 06:59
Intake Total 1000 / 1000 100 / 100
Output Total 300 / 300 200 / 200
Balance 700 / 700 -100 / -100
Review of Systems
-
History Source: Patient and Coordinated Provider
Constitutional: Reports Fever (admission was 103.1 now 97.5)
EENT: Reports No Symptoms Reported
Respiratory: Reports No Symptoms
Cardiac: Reports No Symptoms
Abdomen/GI: Reports No Symptoms
Genitourinary: Reports Dysuria (2-3 days [employer] [facility]), Frequency and Incontinence
Neuro: Reports No Symptoms
Physical Exam
-
General: Well Developed, Well Nourished and No Apparent Distress
HEENT: Atraumatic and Moist Mucous Membranes
Respiratory: Clear to Auscultation; Negative Wheezes, Rales or Rhonchi
Cardiac: Regular Rhythm and S1/S2
GI: Soft, Nontender and Nondistended
Musculoskeletal: No Clubbing, No Cyanosis and No Edema
Neuro: Awake, Alert and Oriented
[2024-03-30] MEDS: LANTUS 0.1 UNITS SC (11:15)
[2024-03-30 11:16] LABS: Glucose - Point of Care 136 mg/dl (70-99)
[2024-03-30 12:03] LABS: Glycohemoglobin (HgbA1c) 6.2 % (4.0-5.6)
--- NOTE | 2024-03-30 13:26 | PHA.VAN.IN ---
Assessment
- Assessment
Renal Function: Appears elevated from baseline
Renal Function may be Overestimated due to: obesity
Maximum Temperature: 103.1 on 03/29/24 22:58
Concomitant Antimicrobials: cefepime
Plan
- Plan
Initial / Loading Dose: 2000 mg loading dose - administration pending
Maintenance Regimen: dose by random level due AJ on CKD
Monitoring: alisa level AM 03/31
Pharmacokinetics Vancomycin I
- -
Patient Age: 68
Patient Sex: Male
Vancomycin Day #: 1
Indication: Genito-Urinary Tract
Requesting Provider: Fran
Pertinent Antimicrobial Allergies:
latex - rash
Height / Weight:
Height 5 ft 11 in
Actual Weight 147.6 kg
IBW in k.3
Adjusted BW in k.2
Pertinent Past Medical History: BMI ~ 45 CKD III
- Vital Signs / Lab Results
Temp Pulse Resp BP Pulse Ox
98.1 F 81 20 137/67 98
03/30/24 11:00 03/30/24 12:00 03/30/24 12:00 03/30/24 12:00 03/30/24 12:00
Lab Results - Hematology
03/29/24 03/30/24
17:36 04:29
WBC 17.9 H 21.5 H
Lab Results - Chemistry
03/29/24 03/30/24
17:35 04:29
BUN 41 H 41 H
Creatinine 2.5 H 2.4 H
Estimated Creat Clear 41 42
Albumin 3.4 L 3.3 L
03/29/24 03/29/24
17:36 21:45
Lactic Acid 1.6 Cancelled
Lab Results - Urine
03/29/24
17:36
Urine Nitrite (Reflex) Negative
Leukocyte Esterase Rfl 3+ A
Urine WBC (Reflex) 60-70 A
Ur Squamous Epith Cells 0-2
Urine Bacteria (Reflex) Many A
Microbiology Results
03/29/24 17:35 Blood Culture - Preliminary
Blood/Venous Proteus species
Gram Stain - Preliminary
03/29/24 17:51 Blood Culture - Preliminary
Blood/Venous Positive culture in progress
Gram Stain - Preliminary
03/29/24 17:36 Influenza Types A & B (LAUREN) - Final
Nasal Swab Negative for Influenza A & B, NAAT
Negative results must be combined with clinical observations
and patient history.
Nucleic Acid Amplification test (NAAT)performed on the
[employer] platform.
--- NOTE | 2024-03-30 13:53 | CHAP ---
Mr. Pa was resting comfortably - said he's doing all right, no needs. Declined prayer. Emotional support provided.
[2024-03-30] MEDS: VANCOCIN 540 MG IV (14:16)
[2024-03-30] MEDS: LIPITOR 80 MG PO (18:22)
[2024-03-30 18:28] LABS: Glucose - Point of Care 119 mg/dl (70-99)
[2024-03-30] MEDS: INDERAL 20 MG PO (20:15)
[2024-03-30 21:47] LABS: Glucose - Point of Care 129 mg/dl (70-99)
[2024-03-31] VITALS (12 sets, daily range): BP systolic 108–172; BP diastolic 57–97
[2024-03-31] MEDS: NSS 1000 IV (01:43)
--- NOTE | 2024-03-31 02:30 | PTCARENOTE ---
Rec'd pt. at beginning of shift AAOx3, VSS, NSR on the monitor. Pt. complaining of generalized lower abd/pelvic discomfort following cysto with stent & Arias placement, level 6/10, Tylenol given with adequate relief obtained. Arias draining large
amounts lambert urine with sediment. Arias /perineal care provided, leg strap applied, then pt. assisted OOB to chair with RW, linens changed per pt. request. Currently back in bed sleeping.
[2024-03-31 05:30] LABS: % Basophils 0.3 % (0-2); % Eosinophils 0.2 % (0-6); % Immature Granulocytes 0.9 % (0-0.5); % Lymphocytes 4.8 % (20.5-51.1); % Monocytes 6.8 % (1.7-9.3); Absolute Immature Granulocytes 0.1 10^3/uL (0-0.05); Absolute Lymphocytes 0.7 10^3/uL (1.2-3.4); Absolute Neutrophils 12.7 10^3/uL (1.4-6.5); Hematocrit 34.6 % (39.0-52.0); Hemoglobin 11.6 g/dL (13.0-18.0); Mean Corp Hgb Conc. 33.5 g/dL (33.0-37.0); Mean Corpuscular Hgb 28.2 pg (27.0-31.0); Mean Corpuscular Volume 84.2 fL (80.0-94.0); Mean Platelet Volume 10.5 fL (7.4-10.4); Nucleated Red Blood Cells % 0 % (-); Platelet Count 140 10^3/uL (130-400); Red Blood Cell Count 4.11 10^6/uL (4.70-6.10); Red Cell Dist. Width 16.4 % (11.5-14.5); White Blood Cell Count 14.6 10^3/uL (4.8-10.8)
[2024-03-31 05:31] LABS: Blood Urea Nitrogen 41 mg/dl (9-20); Calcium 7.9 mg/dl (8.4-10.2); Carbon Dioxide 15 mmol/L (22-30); Chloride 114 mmol/L (98-107); Estimated Creatinine Clearance 60 ml/min; Glucose 102 mg/dl (70-99); Potassium 3.6 mmol/L (3.5-5.1); Sodium 139 mmol/L (135-145); eGFR 42.83
[2024-03-31 05:48] LABS: Vancomycin Random 9.4 ug/ml
[2024-03-31 07:49] LABS: Glucose - Point of Care 119 mg/dl (70-99)
[2024-03-31] MEDS: LANTUS 0.1 UNITS SC (08:57)
[2024-03-31] MEDS: PROCARDIA XL (EXTENDED RELEASE) 30 MG PO (08:58)
[2024-03-31] MEDS: VITAMIN C 1000 MG PO (08:59)
[2024-03-31] MEDS: VITAMIN D3 (cholecalciferol) 125 MCG PO (08:59)
[2024-03-31] MEDS: PAXIL 20 MG PO (08:59)
[2024-03-31] MEDS: INDERAL 20 MG PO ×2 (09:00→19:51)
[2024-03-31] MEDS: STERILE WATER FOR INJECTION 10 ML IV ×3 (09:01→23:06)
[2024-03-31] MEDS: THERAGRAN 1 TABLET PO (09:01)
[2024-03-31] MEDS: MAXIPIME 1000 MG IV ×3 (09:02→23:07)
--- NOTE | 2024-03-31 09:47 | PTCARENOTE ---
on walking rounds pt wanted to go in BR Pt told no as he is on monitors has a santos and is unsteady on his feet. Pt put on bedside commode was incont of stool and had a BM. Pt now OOB in chair eating breakfast . Santos emptied for yellow urine
[2024-03-31] MEDS: NSS IV (11:51)
[2024-03-31 12:39] LABS: Glucose - Point of Care 129 mg/dl (70-99)
--- NOTE | 2024-03-31 13:49 | CON.ID ---
Consultation
-
Date/Time Consultation Requested: March 1046
Date/Time Consultation Performed: March 31, 2024 1350
Requesting Provider: Dr. Cordell Glass
Performing Provider: Dr. Mely Howell
Reason for Consultation: UTI, bacteremia
Chief Complaint / Past History
Chief Complaint
Fever, flank pain
History of Present Illness
68-year-old male with history of diabetes mellitus, CKD 3, nephrolithiasis who presented to the hospital on March 29 complaining of fevers and chills. He developed urinary incontinence, dysuria and right flank pain the day prior. Positive gross
hematuria. In the ED temperature 102.5, white count of 17.9, blood pressure low. CAT scan of the abdomen pelvis shows large burden calculi bilaterally without significant hydronephrosis. On March 30, he underwent bilateral ureteral stent
placement. Admission blood cultures x 2 are positive for Proteus. Urine culture growing gram-negative rods. Today patient reports he is feeling better. No longer has flank pain. He is feeling a bit stronger.
Past History
Additional Past Medical History:
DM
CAD
Hx CVA
CKD3
Dyslipidemia
Bronchiectasis
HTN
RA
Nephrolithiasis, hx obstructive uropathy
Class III obesity BMI 45
NEIL
Allergy History:
latex Allergy (Verified 03/29/24 17:11)
Rash
Medications Reviewed: Yes
Current Antibiotics:
Cefepime d3
Social History
Tobacco: Non-Smoker
Alcohol: None
Drug: None
Personal:
Family History
Family History: Not Pertinent
Review of Systems
Review of Systems
General: Fever, Chills and Change in Appetite
HEENT: Negative Sinus Problems, Headache or Pharyngitis
Cardiovascular: Negative Chest Pain or Dyspnea
Respiratory: Negative Dyspnea or Cough
Gasteroenterology: Negative Nausea, Vomiting or Diarrhea
Genital / Urological: Dysuria, Hematuria and Flank Pain
Endocrine: Weakness
Skin / Hair / Nails: Negative Rash
Neurological: Negative Dizziness
All systems: All other systems were reviewed and were negative
Vital Signs
Temp Pulse Resp BP Pulse Ox
98.3 F 73 21 119/57 86
03/31/24 11:32 03/31/24 12:00 03/31/24 12:00 03/31/24 12:00 03/31/24 10:00
Physical Exam
Physical Exam
Constitutional: No Acute Distress and Obese
Eyes: No Conjunctival Hemorrhage and Sclera Anicteric
Cardiovascular: Regular Rate and S1/S2
Pulmonary: Clear
Gastrointestinal: Soft, Non Tender, Non Distended and Normal Bowel Sounds
Genito-Urinary: Arias and Clear Urine (+ brown gritty sediments on tubing)
Extremities: Negative Edema
Neurological: AO x 3
Lab / Diagnostic Study Results
03/31/24 04:59
03/31/24 04:58
Abs Immat Gran (auto) 0.1 10^3/uL (0-0.05) H 03/31/24 04:59
Absolute Neuts (auto) 12.7 10^3/uL (1.4-6.5) H 03/31/24 04:59
Absolute Lymphs (auto) 0.7 10^3/uL (1.2-3.4) L 03/31/24 04:59
Absolute Monos (auto) 1.0 10^3/uL (0.1-0.6) H 03/31/24 04:59
Absolute Basos (auto) 0.0 10^3/uL (0-0.2) 03/31/24 04:59
Immature Gran % 0.9 % (0-0.5) H 03/31/24 04:59
Neutrophils % 87.0 % (42.2-75.2) H 03/31/24 04:59
Lymphocytes % 4.8 % (20.5-51.1) L 03/31/24 04:59
Monocytes % 6.8 % (1.7-9.3) 03/31/24 04:59
Eosinophils % 0.2 % (0-6) 03/31/24 04:59
Basophils % 0.3 % (0-2) 03/31/24 04:59
Lactic Acid Cancelled 03/29/24 21:45
Ur Squamous Epith Cells 0-2 /LPF (Few) 03/29/24 17:36
Microbiology Results
Micro:
03/29/24 17:36 Urine Culture - Preliminary
Urine Gram negative bacilli
03/29/24 17:51 Blood Culture - Preliminary
Blood/Venous Proteus species
Gram Stain - Preliminary
03/29/24 17:35 Blood Culture - Preliminary
Blood/Venous Proteus species
Gram Stain - Preliminary
03/30/24 17:16 MRSA Screen - Pending
Nose
03/29/24 17:36 Influenza Types A & B (LAUREN) - Final
Nasal Swab Negative for Influenza A & B, NAAT
Negative results must be combined with clinical observations
and patient history.
Nucleic Acid Amplification test (NAAT)performed on the
[employer] platform.
03/29/24 CT a/p: Large calculi in the central aspects of the right and left renal collecting systems. Suggestion of urothelial thickening at the level of the right renal pelvis suggesting inflammation or infection. No significant hydronephrosis.
Multiple smaller left intrarenal calculi. Hepatic cirrhosis.
Assessment / Plan
# Complicated UTI
# Proteus bacteremia
# Large burden renal calculi s/p bilateral ureteral stent placement 03/30
# Leukocytosis trending down
# Fever resolved
# AJ on CKD3, improving
- Follow repeat blood cx.
-Continue cefepime for now.
- Will de-escalate abx when final cx data available.
- Follow wbc.
--- NOTE | 2024-03-31 15:23 | W.PN.HOSP.TC ---
Today's Communication/Plan
-
Repeat blood culture for clearance.
Continue broad-spectrum antibiotics
ID consult.
Diet resume.
Continue insulin/Lantus at reduced dose.
Wean off IV fluids.
Hold preadmission Plavix, resume when okay with urology.
Hold losartan monitor renal function
Resume nifedipine
Assessment / Plan
Assessment / Plan
Impression:
Complicated UTI.
Sepsis secondary to UTI present on admission
Proteus bacteremia
Bilateral obstructive nephrolithiasis with uropathy
Acute kidney injury
Acute on chronic metabolic acidosis.
Other conditions:
CKD stage IIIb with baseline creatinine 1.7
Type 2 diabetes.
CAD with stents.
Cirrhosis.
Dyslipidemia
Essential hypertension.
Sleep apnea.
Rheumatoid arthritis.
Anemia of chronic disease.
Anxiety/depression
Plan:
Sepsis secondary to complicated UTI
Obstructive uropathy
CT scan with large colliculi in the central aspect of the right and left renal collecting system
Proteus bacteremia
Status post urgent cystoscopy with bilateral ureteral stent placement on 03/30
Blood cultures/urine culture with Proteus.
Remains on broad-spectrum antibiotics vancomycin/cefepime pending final cultures
Repeat blood cultures for clearance
ID/urology input appreciated
# AJ on CKD 3
# Anion gap metabolic acidosis
Creatinine improving 2.5�1.8
Metabolic acidosis improving
Wean off IV fluids
-Hold Lasix
-Hold losartan
Type 2 diabetes
Hemoglobin A1c 6.2
-Continue Tresiba decreased to 10 units. Dose reduced by 50% in the settings of AJ and decreased renal clearance to avoid hypoglycemia
-Insulin sliding scale
CAD with stent in distant past
-Continue statin
-Hold Plavix monitor for hematuria post cystoscopy. Resume when okay with urology
Cirrhosis.
Compensated
Ultrasound of the abdomen pending
Obesity
Anxiety/depression
-Continue paroxetine
Hyperlipidemia
Essential hypertension
-Hold nifedipine, propranolol due to hypotension - see above
Obstructive sleep apnea
Rheumatoid arthritis
-Continue Orencia
Chronic anemia
-Hemoglobin 10
-hold Fe supplement with pt nonambulatory to avoid excessive constipation
Full code
DVT prophylaxis�SCDs
.
Anticipated Discharge: 24 - 48 hours
Subjective/Interval History
-
Date of Service: March 31, 2024
Objective Data
-
Labs:
Laboratory Results
03/31/24 03/31/24
04:58 04:59
WBC 14.6 H
Hgb 11.6 L
Hct 34.6 L
Plt Count 140
Sodium 139
Potassium 3.6
Chloride 114 H
Carbon Dioxide 15 L
BUN 41 H
Creatinine 1.7 H
Glucose 102 H
Calcium 7.9 L
Vital Signs:
Vital Signs
Temp Pulse Resp BP Pulse Ox
98.4 F 73 21 119/57 86
03/31/24 14:58 03/31/24 12:00 03/31/24 12:00 03/31/24 12:00 03/31/24 10:00
I&O
03/30/24 03/31/24 04/01/24
06:59 06:59 06:59
Intake Total 1000 / 1000 6230 / 6230
Output Total 300 / 300 2465 / 2465 450 / 450
Balance 700 / 700 3765 / 3765 -450 / -450
Physical Exam
-
General: Well Developed, Well Nourished and No Apparent Distress
HEENT: Atraumatic and Moist Mucous Membranes
Respiratory: Clear to Auscultation; Negative Wheezes, Rales or Rhonchi
Cardiac: Regular Rhythm and S1/S2
GI: Soft, Nontender and Nondistended
Musculoskeletal: No Clubbing, No Cyanosis and No Edema
Neuro: Awake, Alert and Oriented
[2024-03-31] MEDS: TUMS CHEWABLE TABLET 200 MG PO ×2 (15:34→21:48)
--- NOTE | 2024-03-31 15:59 | W.PN.URO.CBU ---
Today's Communication / Plan
-
- D/c Arias catheter in AM 04/01 (ordered)
- IV Cefepime pending Cx data per ID
- Plan for outpatient bilateral ULS in 3-4 weeks after repeat UCx (as outpatient)
D/w patient and spouse.
D/w Hospitalist.
Assessment / Plan
-
Proteus cUTI + bacteremia
Large volume bilateral renal stone burden
Leukocytosis - improving
AJ on CKD 3 - improving
H/o CaOx and uric acid nephrolithiasis
03/30: s/p bilateral ureteral stent placement + catheter placement
Diagnosis
-
Date of Service: March 31, 2024
-
Patient Diagnosis:
Proteus cUTI + bacteremia
Large volume bilateral renal stone burden
Leukocytosis
AJ on CKD 3
Post Op Day:
03/30: s/p bilateral ureteral stent placement + catheter placement
Subjective
-
Feels improved in last 24 hrs.
Arias catheter draining clear.
Objective
-
Vital Signs
Temp Pulse Resp BP Pulse Ox
98.4 F 73 21 119/57 86
03/31/24 14:58 03/31/24 12:00 03/31/24 12:00 03/31/24 12:00 03/31/24 10:00
Intake and Output
03/30/24 03/31/24 04/01/24
06:59 06:59 06:59
Intake Total 1000 / 1000 6230 / 6230
Output Total 300 / 300 2465 / 2465 450 / 450
Balance 700 / 700 3765 / 3765 -450 / -450
Intake:
Oral fluids 3015 / 3015
IV fluids (Total) 1000 / 1000 2640 / 2640
Normosol 100 / 100
IV piggybacks 575 / 575
Output:
Urine, Arias 2465 / 2465 450 / 450
Urine, Voided 300 / 300
Laboratory Results
03/31/24 04:59
03/31/24 04:58
Physical Exam
-
General - well developed, well nourished, no acute distress
Abdomen - soft, non-tender
Genitalia - normal, Arias catheter w/ clear UOP
Skin - warm & dry with no rash
Neuro - AOx3, no motor deficits
Care Review
Data Reviewed
Discussed with: Hospitalist and Family
CT Scan: Report Pers Reviewed and Image Pers Reviewed
--- NOTE | 2024-03-31 16:56 | CM ---
Patient with Dx Proteus cUTI + bacteremia. Plan d/c santos in am 04/01.
Met with patient who resides with his in a 2 story house with 2 CHITRA.
The patient was independent in ADLs and ambulation using his cane when he goes out.
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
DME - [facility], CPAP
No prior VN or SNF.
PCP - Anabel Martinez
Pharmacy - [facility]
No CM d/c needs identified.
Plan home.
[2024-03-31 17:53] LABS: Glucose - Point of Care 130 mg/dl (70-99)
[2024-03-31] MEDS: LIPITOR 80 MG PO (18:16)
[2024-03-31 22:37] LABS: Glucose - Point of Care 105 mg/dl (70-99)
[2024-04-01 03:35] VITALS: BP 123/71
[2024-04-01] MEDS: TUMS CHEWABLE TABLET 200 MG PO (06:08)
[2024-04-01 07:33] LABS: Glucose - Point of Care 128 mg/dl (70-99)
[2024-04-01 07:48] VITALS: BP 139/74
[2024-04-01] MEDS: ROCEPHIN 1000 MG IV (09:12)
[2024-04-01] MEDS: STERILE WATER FOR INJECTION 10 ML IV (09:12)
[2024-04-01] MEDS: PROCARDIA XL (EXTENDED RELEASE) 30 MG PO (09:12)
[2024-04-01] MEDS: THERAGRAN 1 TABLET PO (09:12)
[2024-04-01] MEDS: PAXIL 20 MG PO (09:12)
[2024-04-01] MEDS: VITAMIN C 1000 MG PO (09:13)
[2024-04-01] MEDS: INDERAL 20 MG PO (09:13)
[2024-04-01] MEDS: VITAMIN D3 (cholecalciferol) 125 MCG PO (09:13)
[2024-04-01] MEDS: LANTUS 0.1 UNITS SC (09:14)
[2024-04-01] MEDS: MAXIPIME IV (09:16)
[2024-04-01] MEDS: STERILE WATER FOR INJECTION IV (09:17)
--- NOTE | 2024-04-01 09:50 | W.PN.ID1 ---
Date of Service
Date of Service: April 01, 2024
Today's Communication
- At time of DC, can transition to cipro 500 mg po bid through 04/13/24. Check QTc.
Assessment / Plan
# Complicated UTI
# Proteus bacteremia
# Large burden renal calculi s/p bilateral ureteral stent placement 03/30
# Leukocytosis trending down
# Fever resolved
# AJ on CKD3, improving
- repeat blood cx, pending.
- Narrow cefepime to ceftriaxone.
- At time of DC, can transition to cipro 500 mg po bid through 04/13/24. Check QTc.
# Additional Past Medical History:
DM
CAD
Hx CVA
CKD3
Dyslipidemia
Bronchiectasis
HTN
RA
Nephrolithiasis, hx obstructive uropathy
Class III obesity BMI 45
NEIL
Chief Complaint
-: UTI and Bacteremia
Subjective / Review of Systems
Arias removed. He is voiding well. Wants to go home today.
Vital Signs / Physical Exam
Vital Signs
Vital Signs
Temp Pulse Resp BP Pulse Ox
97.8 F 74 18 139/74 98
04/01/24 07:48 04/01/24 07:48 04/01/24 07:48 04/01/24 07:48 04/01/24 07:48
Physical Exam
Constitutional: No Acute Distress and Comfortable
Pulmonary: Clear
Gastrointestinal: Soft, Non Tender, Non Distended and Normal Bowel Sounds
Genito-Urinary: Negative Arias or CVA Tenderness
Extremities: Negative Edema
Neurological: AO x 3
Objective Data
Lab Data
Estimated Creat Clear 60 ml/min 03/31/24 04:58
Lactic Acid Cancelled 03/29/24 21:45
Total Bilirubin 1.7 mg/dl (0.2-1.3) H 03/30/24 04:29
AST 36 U/L (17-59) 03/30/24 04:29
ALT 24 U/L (0-50) 03/30/24 04:29
Alkaline Phosphatase 94 U/L (38-126) 03/30/24 04:29
Most recent labs reviewed.
Micro Results:
03/29/24 17:36 Urine Culture - Preliminary
Urine Gram negative bacilli
03/30/24 17:16 MRSA Screen - Final
Nose Staph aureus MRSA
03/29/24 17:51 Blood Culture - Preliminary
Blood/Venous Proteus mirabilis
Gram Stain - Preliminary
03/29/24 17:35 Blood Culture - Preliminary
Blood/Venous Proteus mirabilis
Gram Stain - Preliminary
03/31/24 14:03 Blood Culture - Pending
Blood/Venous
03/29/24 17:36 Influenza Types A & B (LAUREN) - Final
Nasal Swab Negative for Influenza A & B, NAAT
Negative results must be combined with clinical observations
and patient history.
Nucleic Acid Amplification test (NAAT)performed on the
[employer] platform.
03/29/24 CT a/p: Large calculi in the central aspects of the right and left renal collecting systems. Suggestion of urothelial thickening at the level of the right renal pelvis suggesting inflammation or infection. No significant hydronephrosis.
Multiple smaller left intrarenal calculi. Hepatic cirrhosis.
Care Review
Plan reviewed with: Physician (Dr. Glass)
--- NOTE | 2024-04-01 10:55 | CM ---
Patient seen bedside.
Patient for possible d/c home.
IMM completed.
Patient denies home care needs.
Patient has transportation.
Plan: home no needs.
[2024-04-01 11:21] LABS: Blood Urea Nitrogen 33 mg/dl (9-20); Calcium 8.5 mg/dl (8.4-10.2); Carbon Dioxide 19 mmol/L (22-30); Chloride 109 mmol/L (98-107); Estimated Creatinine Clearance 63 ml/min; Glucose 134 mg/dl (70-99); Potassium 3.7 mmol/L (3.5-5.1); Sodium 137 mmol/L (135-145); eGFR 46.06
[2024-04-01 11:23] LABS: % Basophils 0.3 % (0-2); % Eosinophils 0.9 % (0-6); % Immature Granulocytes 0.9 % (0-0.5); % Lymphocytes 6.9 % (20.5-51.1); % Monocytes 7.9 % (1.7-9.3); % Neutrophils 83.1 % (42.2-75.2); Absolute Eosinophils 0.1 10^3/uL (0-0.7); Absolute Immature Granulocytes 0.1 10^3/uL (0-0.05); Absolute Lymphocytes 0.9 10^3/uL (1.2-3.4); Absolute Neutrophils 10.8 10^3/uL (1.4-6.5); Hematocrit 39.6 % (39.0-52.0); Hemoglobin 13.1 g/dL (13.0-18.0); Mean Corp Hgb Conc. 33.1 g/dL (33.0-37.0); Mean Corpuscular Hgb 27.7 pg (27.0-31.0); Mean Corpuscular Volume 83.7 fL (80.0-94.0); Mean Platelet Volume 10.5 fL (7.4-10.4); Nucleated Red Blood Cells % 0 % (-); Platelet Count 170 10^3/uL (130-400); Red Blood Cell Count 4.73 10^6/uL (4.70-6.10); Red Cell Dist. Width 16.6 % (11.5-14.5)
[2024-04-01 11:33] LABS: Glucose - Point of Care 172 mg/dl (70-99)
[2024-04-01 11:44] VITALS: BP 116/53
--- NOTE | 2024-04-01 11:44 | W.DS.TRANS ---
DC Summary - [employer]
-
Discharge Instructions:
Discharge Diagnosis/Procedures Impression:
Complicated UTI.
Sepsis secondary to UTI present on admission
Proteus bacteremia
Bilateral obstructive nephrolithiasis with
uropathy
Acute kidney injury
Acute on chronic metabolic acidosis.
Other conditions:
CKD stage IIIb with baseline creatinine 1.7
Type 2 diabetes.
CAD with stents.
Cirrhosis.
Dyslipidemia
Essential hypertension.
Diet Diabetic, Carb Controlled
Instructions:
Stand-Alone Forms:
Changes to Home Medications: Yes
Discharge Medications:
DC Medications w/original date entered in [email or web address]
paroxetine HCl 20 mg tablet 20 mg PO DAILY anxiety 02/03/12
propranolol 10 mg tablet 20 mg PO BID Blood Pressure 03/05/16
furosemide 20 mg tablet (Lasix) 40 mg PO DAILY Fluid Retention/Swelling 01/04/18
abatacept 125 mg/mL subcutaneous syringe (Orencia) 125 mg SC MO Autoimmune Disorder 06/11/22
ascorbic acid (vitamin C) 1,000 mg tablet (Vitamin C) 1,000 mg PO DAILY Supplement 06/11/22
atorvastatin 80 mg tablet 80 mg PO QPM High Cholesterol 06/11/22
cholecalciferol (vitamin D3) 125 mcg (5,000 unit) tablet (Vitamin D3) 125 mcg PO DAILY Supplement 06/11/22
clopidogrel 75 mg tablet (Plavix) 75 mg PO DAILY Blood Clot Prevention/Tx 06/11/22
insulin aspart U-100 100 unit/mL (3 mL) subcutaneous pen (Novolog FlexPen U-100 Insulin aspart) 8 unit SC TID DIABETES 05/20/23
insulin degludec 100 unit/mL (3 mL) subcutaneous pen (Tresiba FlexTouch U-100 insulin) 20 unit SC DAILY diabetes ##0 05/20/23
tirzepatide 7.5 mg/0.5 mL subcutaneous pen injector (Mounjaro) 10 mg SC GARCIA Diabetes 05/20/23
multivitamin 1 tab PO DAILY 06/01/23
ferrous sulfate 325 mg (65 mg iron) tablet 325 mg PO DAILY 03/29/24
losartan 50 mg tablet 50 mg PO BID 03/29/24
nifedipine 60 mg tablet,extended release 60 mg PO DAILY 03/29/24
ciprofloxacin HCl 500 mg tablet (Cipro) 500 mg PO BID #24 tabs 04/01/24
Home Medication Changes
Antibiotics through 04/13
Pending Results: No
== END 2024-04-01 12:21 | disposition home or self-care (01) | DRG 854 ==
LOC: 1 ACUTE 20:21
PROVIDERS: Internal Medicine; Physician Assistant; ADMITTING PHYSICIAN Hospitalist; ATTENDING PHYSICIAN Internal Medicine; CONSULT PHYSICIAN Surgery; EMERGENCY PHYSICIAN Emergency Medicine; FAMILY PHYSICIAN Family Medicine; OTHER PHYSICIAN Internal Medicine Infectious Disease
PROC: 0T788DZ Dilation of Bilateral Ureters with Intraluminal Device, Via Natural or Artificial Opening Endoscopic (ICD-10-PCS; 2024-03-30)
PROC: 0T9B70Z Drainage of Bladder with Drainage Device, Via Natural or Artificial Opening (ICD-10-PCS; 2024-03-30)
PROC: 5A09357 Assistance with Respiratory Ventilation, Less than 24 Consecutive Hours, Continuous Positive Airway Pressure (ICD-10-PCS; 2024-03-31)
PROC: 0TPBX0Z Removal of Drainage Device from Bladder, External Approach (ICD-10-PCS; 2024-04-01)
DX: A41.59 Other Gram-negative sepsis (principal); E87.21 Acute metabolic acidosis; N17.9 Acute kidney failure, unspecified; Z68.42 Body mass index [BMI] 45.0-49.9, adult; N20.2 Calculus of kidney with calculus of ureter; E87.22 Chronic metabolic acidosis; N30.91 Cystitis, unspecified with hematuria; R65.20 Severe sepsis without septic shock; E78.00 Pure hypercholesterolemia, unspecified; I25.10 Atherosclerotic heart disease of native coronary artery without angina pectoris; E11.22 Type 2 diabetes mellitus with diabetic chronic kidney disease; N18.32 Chronic kidney disease, stage 3b; E66.813 Obesity, class 3; F41.9 Anxiety disorder, unspecified; N13.9 Obstructive and reflux uropathy, unspecified; I12.9 Hypertensive chronic kidney disease with stage 1 through stage 4 chronic kidney disease, or unspecified chronic kidney disease; F32.A Depression, unspecified; G47.33 Obstructive sleep apnea (adult) (pediatric); D63.8 Anemia in other chronic diseases classified elsewhere; J47.9 Bronchiectasis, uncomplicated; K74.69 Other cirrhosis of liver; M06.9 Rheumatoid arthritis, unspecified; E66.01 Morbid (severe) obesity due to excess calories; Z87.442 Personal history of urinary calculi; Z86.73 Personal history of transient ischemic attack (TIA), and cerebral infarction without residual deficits; Z79.4 Long term (current) use of insulin; Z79.85 Long-term (current) use of injectable non-insulin antidiabetic drugs; Z79.02 Long term (current) use of antithrombotics/antiplatelets; Z91.040 Latex allergy status; Z95.5 Presence of coronary angioplasty implant and graft; Z11.52 Encounter for screening for COVID-19
CPT/HCPCS: 74018; 74176; 76000; 76700; 80048; 80053; 80202; 81003; 81015; 82962; 83036; 83605; 85025; 87040; 87070; 87077; 87086; 87147; 87149; 87186; 87205; 87502; 87811; 93005; 96365; 96375; 99291

== ENCOUNTER 2024-04-22 06:22 | Day surgery (SDC) | payer BC, OTHER, SELFPAY ==
[2024-04-22 08:00] VITALS: BMI 46.2
[2024-04-22 08:15] VITALS: BP 107/45; BMI 46.2
[2024-04-22 08:23] LABS: Glucose - Point of Care 109 mg/dl (70-99)
[2024-04-22 08:42] VITALS: BP 110/51
[2024-04-22 10:30] VITALS: BP 112/58
[2024-04-22 10:45] VITALS: BP 125/43
== END 2024-04-22 11:00 | disposition home or self-care (01) ==
LOC: SDS 06:22
PROVIDERS: ATTENDING PHYSICIAN Specialist
DX: Z12.11 Encounter for screening for malignant neoplasm of colon (principal); D12.0 Benign neoplasm of cecum; D12.2 Benign neoplasm of ascending colon; D12.3 Benign neoplasm of transverse colon; K57.30 Diverticulosis of large intestine without perforation or abscess without bleeding; Z86.0101 Personal history of adenomatous and serrated colon polyps; Z87.19 Personal history of other diseases of the digestive system
CPT/HCPCS: 43235; 45385; 88305; 82962

== ENCOUNTER 2024-05-05 06:40 | Day surgery (SDC) | payer BC, OTHER, SELFPAY ==
[2024-05-05] VITALS (9 sets, daily range): BP systolic 101–116; BP diastolic 52–63; BMI 46.2
[2024-05-05] MEDS: NORMOSOL-R/PLASMALYTE-A 1000 IV (11:50)
[2024-05-05 11:54] LABS: Glucose - Point of Care 171 mg/dl (70-99)
[2024-05-05 13:50] LABS: Glucose - Point of Care 146 mg/dl (70-99)
--- NOTE | 2024-05-05 14:08 | SUR.PHASEI ---
Dr. Hendricks notified pt with pulse ox 93-95% on room air, pt BS 146. Per Dr. Hendricks, pt stable for discharge to [facility].
== END 2024-05-05 14:19 | disposition home or self-care (01) ==
LOC: SDS 06:40
PROVIDERS: ATTENDING PHYSICIAN Surgery
DX: N20.2 Calculus of kidney with calculus of ureter (principal); N17.9 Acute kidney failure, unspecified; Z87.440 Personal history of urinary (tract) infections; Z87.442 Personal history of urinary calculi
CPT/HCPCS: 52356; 74018; 76000; 82962; C1769; C2617

== ENCOUNTER 2024-05-26 06:23 | Day surgery (SDC) | payer BC, OTHER, SELFPAY ==
[2024-05-26] VITALS (8 sets, daily range): BP systolic 126–149; BP diastolic 60–84; BMI 46.5
[2024-05-26 13:13] LABS: Glucose - Point of Care 116 mg/dl (70-99)
[2024-05-26 15:38] LABS: Glucose - Point of Care 89 mg/dl (70-99)
[2024-05-26] MEDS: DETROL LA 4 MG PO (16:02)
[2024-05-26] MEDS: Pyridium 200 MG PO (16:02)
== END 2024-05-26 17:06 | disposition home or self-care (01) ==
LOC: SDS 06:23
PROVIDERS: ATTENDING PHYSICIAN Surgery
DX: N20.2 Calculus of kidney with calculus of ureter (principal); N17.9 Acute kidney failure, unspecified; Z87.442 Personal history of urinary calculi; Z87.440 Personal history of urinary (tract) infections
CPT/HCPCS: 52356; 74018; 76000; 82962; C1769; C1894; C2617

== ENCOUNTER 2024-07-22 06:07 | Day surgery (SDC) | payer BC, OTHER, SELFPAY ==
[2024-07-22 08:45] VITALS: BMI 47.9
[2024-07-22 08:50] VITALS: BP 119/65
[2024-07-22 08:55] VITALS: BMI 47.9
[2024-07-22 09:33] LABS: Glucose - Point of Care 88 mg/dl (70-99)
[2024-07-22 11:32] LABS: Glucose - Point of Care 92 mg/dl (70-99)
[2024-07-22 12:31] VITALS: BP 117/62
[2024-07-22 12:45] VITALS: BP 132/67
[2024-07-22 13:01] VITALS: BP 133/70
== END 2024-07-22 14:02 | disposition home or self-care (01) ==
LOC: SDS 06:07
PROVIDERS: ATTENDING PHYSICIAN Internal Medicine Gastroenterology
DX: D12.0 Benign neoplasm of cecum (principal); D12.2 Benign neoplasm of ascending colon; K64.0 First degree hemorrhoids
CPT/HCPCS: 45390; 45385; 88305; 82962

== ENCOUNTER → 2024-10-17 13:01 | Outpatient (REF) | payer BC, OTHER, SELFPAY | LOC: HWRAD 13:01 | PROVIDERS: ATTENDING PHYSICIAN Surgery; FAMILY PHYSICIAN Family Medicine; REFERRING PHYSICIAN Internal Medicine Endocrinology, Diabetes & Metabolism | DX: N20.9 Urinary calculus, unspecified (principal); E04.1 Nontoxic single thyroid nodule; N13.2 Hydronephrosis with renal and ureteral calculous obstruction | CPT/HCPCS: 74176; 76536 ==

== ENCOUNTER 2024-12-05 06:08 | Day surgery (SDC) | payer BC, OTHER, SELFPAY ==
[2024-12-05 07:42] LABS: Glucose - Point of Care 91 mg/dl (70-99)
[2024-12-05 07:44] VITALS: BMI 48.9
[2024-12-05 07:46] VITALS: BP 117/60; BMI 48.9
[2024-12-05 09:45] VITALS: BP 120/65
[2024-12-05 10:00] VITALS: BP 113/61
== END 2024-12-05 10:16 | disposition home or self-care (01) ==
LOC: SDS 06:08
PROVIDERS: ATTENDING PHYSICIAN Internal Medicine Gastroenterology
DX: Z12.11 Encounter for screening for malignant neoplasm of colon (principal); D12.0 Benign neoplasm of cecum; D12.3 Benign neoplasm of transverse colon; D12.4 Benign neoplasm of descending colon; K63.5 Polyp of colon; K57.30 Diverticulosis of large intestine without perforation or abscess without bleeding; K64.0 First degree hemorrhoids; Z86.0101 Personal history of adenomatous and serrated colon polyps; Z79.02 Long term (current) use of antithrombotics/antiplatelets; Z98.890 Other specified postprocedural states
CPT/HCPCS: 45388; 82962; 88305